=== PATIENT | male | born 1935 | race Caucasian/White ===

== ENCOUNTER 2018-05-13 11:20 | Inpatient (IN) | payer OTHER ==
[~2018-05-13] VITALS: Ht 170.2 cm; Wt 90.9 kg
--- NOTE | 2018-05-13 11:42 | ED GENERAL ADULT ---
History of Present Illness General Chief Complaint: General Adult Stated Complaint: GENERALIZED WEAKNESS, LOW WBC Source: patient, family, old records Exam Limitations: no limitations Vital Signs & Intake/Output Vital Signs & Intake/Output Vital Signs Date Time Temp Pulse Resp B/P B/P Pulse O2 O2 Flow FiO2 Mean Ox Delivery Rate 05/13 2059 59 110/48 05/13 1811 97.7 53 20 144/62 97 Room Air 05/13 1719 98.2 60 20 155/69 98 Room Air 05/13 1648 Room Air 05/13 1538 98.2 62 19 138/66 99 Room Air 05/13 1318 97.6 56 20 135/63 98 Room Air 05/13 1248 Room Air 05/13 1127 97.5 56 18 166/72 99 Room Air Allergies Coded Allergies: No Known Allergies (05/03/17) Triage Note: 83 YEAR OLD MALE BIBA FROM WORK WITH GENERALIZED WEAKNESS. HX PACEMAKER. PATIENT REPORTS SHORTNESS OF BREATH WITH EXERTION. PALLOR NOTED. SKIN IS WARM AND DRY. FINGER STICK BLOOD SUGAR PER EMS WAS 179. PATIENT ALSO REPORT DARK STOOLS X 1 WEEK. PT PRESENTS AWAKE, ALERT, ORIENTED, CALM, AND COOPERATIVE. Triage Nurses Notes Reviewed? yes HPI: 83-year-old man with multiple medical problems and significant cardiovascular history including coronary artery disease status post coronary artery bypass and atrial fibrillation status post permanent pacemaker on Xarelto/aspirin seen for evaluation of fatigue, exertional shortness of breath/chest pain, and black tarry stool. Patient reports over the past 8-9 days he has been experiencing loose black tarry bowel movements without any obvious bright red blood. He takes Xarelto and aspirin for his coronary artery disease and atrial fibrillation. He does not use any NSAIDs. He has been feeling fatigue and weakness during this time and over the past several days developed exertional shortness of breath and chest pain. He saw his psychological operations officer Dr. Ras Cooney this past Monday who reported that his hematocrit level was "27%" and instructed him to stop taking the Xarelto and to follow-up with his gastroenterology appointment when able. Patient developed nausea today while at work for which she was brought to the [facility] ED for evaluation. Presently he feels well at rest but does admit to persistent fatigue. He otherwise denies any headache, fever, chills, blurred/double vision, lightheadedness/dizziness, current chest pain at rest, palpitations, heartburn, shortness breath, cough, vomiting, abdominal pain. (Kevin Alegria MD) Reconcile Medications Albuterol Sulfate (Proair Hfa) 90 MCG HFA.AER.AD 2 PUF INH Q4-6 PRN PRN SOB ( Reported) Amiodarone HCl 200 MG TABLET 1 TAB PO DAILY AFIB (Reported) Amlodipine Besylate 10 MG TABLET 1 TAB PO DAILY BP (Reported) Aspirin (Aspirin*) 81 MG TAB.CHEW 1 TAB PO DAILY HEART (Reported) Atorvastatin Calcium 20 MG TABLET 1 TAB PO DAILY HLD (Reported) Carvedilol 3.125 MG TABLET 1 TAB PO BID AFIB (Reported) Furosemide 40 MG TABLET 1 TAB PO DAILY HF (Reported) Lisinopril 20 MG TABLET 1 TAB PO DAILY BP (Reported) Magnesium Oxide 400 MG TABLET 1 TAB PO DAILY SUPPLEMENT (Reported) Metformin HCl 500 MG TABLET 1 TAB PO BID DIABETES (Reported) Nitroglycerin (Nitrostat) 0.4 MG TAB.SUBL 1 TAB SL AD PRN chest pain ( Reported) 1st sign of attack; may repeat every 5 minutes until relief; if pain persists after 3 tablets in 15 minutes, prompt medical att Rivaroxaban (Xarelto) 20 MG TABLET 1 TAB PO DAILY AFIB (Reported) with food (Dony KIRBY,Abel) Past History Travel History Traveled to [place] past 21 day No Medical History Any Pertinent Medical History? see below for history Cardiovascular: AFIB, hypertension, CAD PACEMAKER Surgical History Surgical History: CABG Psychosocial History What is your primary language Lithuanian Tobacco Use: Never used Family History Hx Contributory? No (Kevin Alegria MD) Review of Systems Review of Systems Constitutional: Reports: see HPI. (Kevin Alegria MD) Physical Exam Physical Exam General Appearance: well developed/nourished, no apparent distress, alert, awake , comfortable Comments: General - well developed, well nourished elderly man in no acute distress HEENT - NCAT, PERRL, EOMI, anicteric sclera Neck- Supple, no JVD/HJR, no bruits, trachea midline, thyroid normal Cardio -3/6 pansystolic murmur at RLSB; regular rate and rhythm, permanent pacemaker in chest wall Resp - Clear to auscultation bilaterally GI - Soft, nontender, nondistended, bowel sounds present Rectal-black/tarry guaiac positive stool without any janee blood Neuro - Awake and alert, CN II - XII grossly intact Extremities - No edema, pulses intact Core Measures ACS in differential dx? No CVA/TIA Diagnosis: No Sepsis Present: No Sepsis Focused Exam Completed? No (Raji KIRBY,Kevin) Progress Differential Diagnoses I considered the following diagnoses in my evaluation of the patient: GI bleed, diverticulitis, diverticular bleed, peptic ulcer disease, duodenal ulcers, acute kidney injury, lactic acidosis, sepsis Plan of Care: Orders Procedure Date/time Status Nothing by Mouth 05/14 B Active CBC WITHOUT DIFFERENTIAL 05/14 0430 Active TROPONIN LEVEL 05/14 0030 Active EKG 05/14 0030 Active Clear Liquid Diet 05/13 D Complete CBC WITHOUT DIFFERENTIAL 05/13 2030 Active Weight 05/13 2007 Active Teach/Educate 05/13 2007 Active Pain Treatment and Response 05/13 2007 Active Nutritional Intake, Monitor 05/13 2007 Active Isolation 05/13 2007 Active Patient Care Conference 05/13 2007 Active TROPONIN LEVEL 05/13 1830 Complete EKG 05/13 1830 Active Pathway - chart 05/13 1741 Active House Staff 05/13 1741 Active Code Status 05/13 1741 Active Add-on Test (ER Only) 05/13 1700 Active LACTIC ACID 05/13 1555 Complete Patient Data 05/13 1523 Active ED Holding Orders 05/13 1521 Active Admit to inpatient 05/13 1521 Active Vital Signs 05/13 1521 Active EKG 05/13 1255 Active TROPONIN LEVEL 05/13 1235 Complete PARTIAL THROMBOPLASTIN TIME 05/13 1143 Complete PROTHROMBIN TIME 05/13 1143 Complete LACTIC ACID 05/13 1143 Complete COMPREHENSIVE METABOLIC PANEL 05/13 1143 Complete CBC WITHOUT DIFFERENTIAL 05/13 1143 Complete TYPE & SCREEN (NOT X-MATCH) 05/13 1143 Complete Intake & Output 05/13 1130 Active VTE Mechanical Prophylaxis 05/13 UNK Active FingerStick- Glucose 05/13 UNK Active Activity/Ambulation 05/13 UNK Active Current Medications Sig/Attila Start time Last Medication Dose Stop Time Status Admin Amlodipine Besylate 10 MG DAILY 05/14 0900 CAN (Norvasc) Atorvastatin Calcium 20 MG DAILY 05/14 09 AC (Lipitor) Insulin Aspart 0 TIDAC 05/14 0800 AC (NovoLOG) Pantoprazole Sodium 40 MG BID 05/13 2100 AC 05/13 (Protonix) 2058 Albuterol Sulfate 2 PUF Q4-6 PRN PRN 05/13 1800 AC (Ventolin) Magnesium Oxide 400 MG DAILY 05/13 1759 AC (Mag-Ox) Amiodarone HCl 200 MG DAILY 05/13 1755 AC 05/13 (Cordarone) 2058 Acetaminophen 650 MG Q6PRN PRN 05/13 1745 AC (Tylenol) Laboratory Tests 05/13/18 1830: Troponin I < 0.01 05/13/18 1610: Lactic Acid 1.9 05/13/18 1235: Anion Gap 9, Estimated GFR 45 L, BUN/Creatinine Ratio 30.0 H, Glucose 135 H, Lactic Acid 2.5 H, Calcium 9.0, Total Bilirubin 0.5, AST 20, ALT 33, Alkaline Phosphatase 58, Troponin I < 0.01, Total Protein 5.6 L, Albumin 3.3 L, Globulin 2.3, Albumin/Globulin Ratio 1.4, PT 12.2, INR 1.12, APTT 25, CBC w Diff NO MAN DIFF REQ, RBC 2.64 L, MCV 94.4 H, MCH 31.4 H, MCHC 33.3, RDW 15.9 H, MPV 9.2, Gran % 78.2 H, Lymphocytes % 12.9 L, Monocytes % 4.8, Eosinophils % 3.5, Basophils % 0.6, Absolute Granulocytes 4.3, Absolute Lymphocytes 0.7 L, Absolute Monocytes 0.3, Absolute Eosinophils 0.2, Absolute Basophils 0 Initial ED EKG: PACED RHYTHM Comments: Elderly man with extensive cardiovascular history including CAD status post CABG and atrial fibrillation on Xarelto status post permanent pacemaker seen for evaluation of black tarry stool 10 days with associated fatigue, exertional shortness of breath/chest pain, now with nausea. Vital signs remain within normal limits. Physical examination demonstrates a pleasant older gentleman with black/tarry stool that is guaiac positive on rectal examination. Labs demonstrate a mildly lower hemoglobin/hematocrit from previous from 9.0/27% - 8.3/24.9%. He remains off of Xarelto as instructed by his psychological operations officer Dr. Cooney. Clinically patient appears to have a gastrointestinal bleed possibly due to his anticoagulant use for his atrial fibrillation. Patient is to be admitted to the telemetry floor for serial troponin, cardiology consultation, gastroenterology consultation, possible endoscopy, possible blood transfusion, and intravenous Protonix. (Kevin Alegria MD) Departure Departure Disposition: STILL A PATIENT Condition: Stable Clinical Impression Primary Impression: GI bleed Referrals: Valeria KIRBY,Linda (PCP/Family) Departure Forms: Customer Survey General Discharge Information Admission Note Spoke With: Onur Wellington MD Documentation of Exam: Documentation of any treatments & extenuating circumstances including Concerns Regarding Discharge (functional status, medication knowledge or non-compliance, living conditions, etc.) that warrant an admission rather than observation: * Serial troponin/EKG * Serial CBC * Vital signs monitoring * Cardiology consultation * Gastroenterology consultation * Intravenous fluids/Protonix * Possible endoscopic evaluation/intervention (Kevin Alegria MD) PA/ARTISTS' MODEL Co-Sign Statement Statement: ED Attending supervision documentation- x I saw and evaluated the patient. I have also reviewed all the pertinent lab results and diagnostic results. I agree with the findings and the plan of care as documented in the PA's/ARTISTS' MODEL's documentation. [] I have reviewed the ED Record and agree with the PA's/ARTISTS' MODEL's documentation. [] Additions or exceptions (if any) to the PAs/ARTISTS' MODEL's note and plan are summarized below: [] (Dony KIRBY,Abel) Critical Care Note Critical Care Note Critical Care Time: 30-74 min (Kevin Alegria MD)
[2018-05-13 12:52] LABS: ABSOLUTE BASOPHIL COUNT 0 /CUMM (0.0-0.2); ABSOLUTE EOSINOPHIL COUNT 0.2 /CUMM (0.0-0.7); ABSOLUTE GRANULOCYTE CT 4.3 /CUMM (1.4-6.5); ABSOLUTE LYMPH COUNT 0.7 /CUMM (1.2-3.4); ABSOLUTE MONOCYTE COUNT 0.3 /CUMM (0.10-0.60); BASOPHIL % 0.6 % (0.0-2.0); EOSINOPHIL % 3.5 % (0-5); GRANULOCYTE % 78.2 % (42.2-75.2); HEMATOCRIT 24.9 % (42-52); MEAN CORPUSCULAR HGB 31.4 PG (27.0-31.0); MEAN CORPUSCULAR HGB CONC 33.3 G/DL (33.0-37.0); MEAN CORPUSCULAR VOLUME 94.4 FL (80.0-94.0); MEAN PLATELET VOLUME 9.2 FL (7.4-10.4); PLATELET COUNT 207 /CUMM (130-400); RBC DISTRIBUTION WIDTH 15.9 % (11.5-14.5); RED BLOOD CELL CT 2.64 /CUMM (4.70-6.10); WHITE BLOOD CELL COUNT 5.5 /CUMM (4.8-10.8)
[2018-05-13 13:01] LABS: PT 12.2 SEC (9.4-12.5); PTT 25 SEC (25-37)
--- NOTE | 2018-05-13 15:39 | History & Physical ---
Blade Weeks 05/13/18 1538: General Information and HPI MD Statement: I have seen and personally examined [facility] and documented this H&P. The patient is a 83 year old M who presented with a patient stated chief complaint of GENERALIZED WEAKNESS AND EXERTIONAL SHORTNESS OF BREATH. Source of Information: patient History of Present Illness: 83-year-old male with extensive cardiovascular history including CAD status post CABG and atrial fibrillation on Xarelto status post permanent pacemaker presents to the emergency department with fatigue, exertional shortness of breath, chest pain, nausea in the setting of 10 days of black tarry stool. Patient reports that over the past 8-9 days he has been experiencing loose black tarry stool without any obvious bright red blood. He is chronically on Xarelto and aspirin for coronary artery disease and atrial fibrillation. He has been feeling fatigued and weakness during this time and over the past several days developed exertional shortness of breath and chest pain. He saw his investment professional Dr. Cooney 2 days ago who instructed him to stop taking Xarelto and follow-up with gastroenterology. Patient developed nausea and was brought to the [place] ED for evaluation by ambulance. Denies any pain. Denies fever/chills/night sweats/chest pain/abdominal pain/urinary symptoms. Patient is being admitted to telemetry for serial monitoring of troponins, EKGs, and CBC, as well as cardiac consultation. Allergies/Medications Allergies: Coded Allergies: No Known Allergies (05/03/17) Compliance With Home Meds: GOOD Past History Travel History Traveled to [place] past 21 day No Medical History Cardiovascular: AFIB, CHF, hypertension, CAD PACEMAKER Surgical History Surgical History: CABG Past Family/Social History Family History Relations & Conditions if any MOTHER FH: atrial fibrillation Functional Ability ADLs Independent: dressing, eating, toileting, bathing. Ambulation: independent IADLs Independent: shopping, housework, finances, food prep, telephone, transportation , medication admin. Review of Systems Review of Systems Constitutional: Reports: malaise, weakness. Denies: chills, fever, unexplained weight loss. Cardiovascular: Reports: chest pain. Denies: orthopena, palpitations, syncope. Respiratory: Reports: short of breath. Denies: cough, hemoptysis, sputum production, stridor , wheezing. GI: Reports: melena, changes in stool. Denies: abdominal pain, constipation, diarrhea, bloody stool, vomiting. Genitourinary: Reports: no symptoms. Musculoskeletal: Reports: no symptoms. Skin: Reports: no symptoms. Neurological/Psychological: Reports: no symptoms. Exam & Diagnostic Data Last 24 Hrs of Vital Signs/I&O Vital Signs Date Time Temp Pulse Resp B/P B/P Pulse O2 O2 Flow FiO2 Mean Ox Delivery Rate 05/13 1538 98.2 62 19 138/66 99 Room Air 05/13 1318 97.6 56 20 135/63 98 Room Air 05/13 1248 Room Air 05/13 1127 97.5 56 18 166/72 99 Room Air Intake & Output 05/13 1600 05/13 0800 05/13 0000 Intake Total 0 Output Total 0 Balance 0 Intake, Oral 0 Output, Urine 0 Patient 187 lb Weight Physical Exam General Appearance Alert, Oriented X3, Cooperative, No Acute Distress Skin No Rashes, No Breakdown, No Significant Lesion Skin Temp/Moisture Exam: Warm/Dry HEENT Atraumatic, PERRLA, EOMI, Mucous Membr. moist/pink Neck Supple, No JVD, No thryomegaly Cardiovascular Regular Rate, Normal S1, Normal S2, Gallops, Rubs, 3/6 systolic murmur, likely aortic stenosis Lungs Clear to Auscultation, Normal Air Movement Abdomen Soft, No Tenderness, No Hepatospenomegaly, No Masses Neurological Normal Speech, Strength at 5/5 X4 Ext, Normal Tone, Sensation Intact Last 24 Hrs of Labs/Alfa: Laboratory Tests 05/13/18 1610: Lactic Acid 1.9 05/13/18 1235: Anion Gap 9, Estimated GFR 45 L, BUN/Creatinine Ratio 30.0 H, Glucose 135 H, Lactic Acid 2.5 H, Calcium 9.0, Total Bilirubin 0.5, AST 20, ALT 33, Alkaline Phosphatase 58, Troponin I Pending, Total Protein 5.6 L, Albumin 3.3 L, Globulin 2.3, Albumin/Globulin Ratio 1.4, PT 12.2, INR 1.12, APTT 25, CBC w Diff NO MAN DIFF REQ, RBC 2.64 L, MCV 94.4 H, MCH 31.4 H, MCHC 33.3, RDW 15.9 H, MPV 9.2, Gran % 78.2 H, Lymphocytes % 12.9 L, Monocytes % 4.8, Eosinophils % 3.5, Basophils % 0.6, Absolute Granulocytes 4.3, Absolute Lymphocytes 0.7 L, Absolute Monocytes 0.3, Absolute Eosinophils 0.2, Absolute Basophils 0 Diagnostic Data EKG Results Paced rhythm Assessment/Plan Assessment: 83-year-old male with extensive cardiovascular history including CAD status post CABG and atrial fibrillation on Xarelto status post permanent pacemaker presents to the emergency department with fatigue, exertional shortness of breath, chest pain, nausea in the setting of 10 days of black tarry stool. Problem list/plan: GI bleed -admit to telemetry to monitor symptomatic anemia -I's and O's per protocol, vitals q shift -Serial troponins and EKG to rule out cardiac etiology -stool was guaiac positive -start patient on full liquid diet, npo at midnight -GI consult for recs -cardiology consult w/ Dr. Cooney, primary investment professional Chronic conditions (afib, chf, cad) -patient has stopped furosemide, xarelto, and aspirin at request of investment professional DVT prophylaxis: ALPS only; patient is actively GI bleeding Full liquid diet with no reds; NPO at midnight Patient is full code As Ranked By This Provider Problem List: 1. GI bleed 2. Atrial fibrillation 3. CAD (coronary artery disease) 4. CHF (congestive heart failure) Core Measures/Misc (05/07) Acute Coronary Syndrome ACS Diagnosis: No Congestive Heart Failure Congestive Heart Failure Diagnosis No Cerebrovascular Accident CVA/TIA Diagnosis: No VTE (View Protocol) VTE Risk Factors Age>40 No Mechanical VTE Prophylaxis d/t N/A MechProphylax Ordered No VTE Pharm Prophylaxis d/t Bleeding (Active) Sepsis (View protocol) Sepsis Present: No If YES complete Sepsis Event Note If YES complete Sepsis Event Note Jake KIRBY,Denise 05/13/18 1606: General Information and HPI Allergies/Medications Home Med list Albuterol Sulfate (Proair Hfa) 90 MCG HFA.AER.AD 2 PUF INH Q4-6 PRN PRN SOB ( Reported) Amiodarone HCl 200 MG TABLET 1 TAB PO DAILY AFIB (Reported) Amlodipine Besylate 10 MG TABLET 1 TAB PO DAILY BP (Reported) Aspirin (Aspirin*) 81 MG TAB.CHEW 1 TAB PO DAILY HEART (Reported) Atorvastatin Calcium 20 MG TABLET 1 TAB PO DAILY HLD (Reported) Carvedilol 3.125 MG TABLET 1 TAB PO BID AFIB (Reported) Furosemide 40 MG TABLET 1 TAB PO DAILY HF (Reported) Lisinopril 20 MG TABLET 1 TAB PO DAILY BP (Reported) Magnesium Oxide 400 MG TABLET 1 TAB PO DAILY SUPPLEMENT (Reported) Metformin HCl 500 MG TABLET 1 TAB PO BID DIABETES (Reported) Nitroglycerin (Nitrostat) 0.4 MG TAB.SUBL 1 TAB SL AD PRN chest pain ( Reported) 1st sign of attack; may repeat every 5 minutes until relief; if pain persists after 3 tablets in 15 minutes, prompt medical att Rivaroxaban (Xarelto) 20 MG TABLET 1 TAB PO DAILY AFIB (Reported) with food Core Measures/Misc (05/07) Sepsis (View protocol) If YES complete Sepsis Event Note If YES complete Sepsis Event Note Resident Review Statement Resident Statement: examined this patient, discussed with production intern Other Findings: Mr. Mcmanus is an 83-year-old gentleman with past medical history significant for hypertension, diabetes, CAD status post bypass (2000), A. fib status post pacemaker placement(April 2017) on Xarelto and CHF(?? systolic versus diastolic) presents with black tarry stools starting a week to 10 days ago. Per the patient, he was in his usual state of health until 10 days ago when he started noticing dark colored stools. Denies any janee blood or any previous episodes. He had FOBT done at home( precribed by PCP) which was positive. Also complains of shortness of breath especially with exertion, fatigue and also chest pain mostly with exertion and at nighttime which is 2/10 intensity, lasts for 2-3 minutes and is usually at the pacemaker site with sometimes radiation to the back. Pain usually goes away when he sits and has been more frequent for the past 1 week. He saw his regular investment professional Dr. Stallworth on Monday and had a CABG done at that time because of black stools, with the H&H coming back 9.3/ 27.0. He was told to stop his Lasix, Xarelto and aspirin at that time. Patient states he was feeling lightheaded and nauseous at work this morning, and decided to come to the ER. Patient has never had a colonoscopy/EGD done in the past and has never seen a GI doctor. Vitals on admission were temperature 97.5, heart rate 56, respiratory rate 18, blood pressure 166/72, and O2 sats 99% on room air. Labs were significant for H&H of 8.3/24.9, BUN 45, creatinine 1.5, lactic acid 2.5 with normal coagulation profile. Problem list; 1. Symptomatic Anemia in the setting of active GI bleed while on Xarelto and Aspirin. While admit him to telemetry floor given extensive cardiac hx CAD s/p Bypass, Afib and CHF for closer monitoring and now presenting with chest pain and SOB. 2. LActic Acidosis; Likely type A from GI bleed from decreased tissue oxygenation. 3. CKD stage 3. 4. Hx of HTN and DM - Admit the patient to telemetry floor - CBC every 6 hours to monitor H&H - IV Protonix 40 mg twice daily - GI consult -Keep the patient on clear liquids tonight and n.p.o. after midnight for likely endoscopy in the morning - Repeat Lactic acid level. -Troponin EKG 3 to rule out ACS -Continue to hold Xarelto, aspirin and furosemide -Cardiology consult -Hold Metformin and start the patient on ISS. -Will also hold Lisinopril given mild elevation in Cr and GI bleed, continue amlodipine and carvedilol. Continue Atorvastatin and Amiodarone. -Repeat Echo if okay if Cardio. -Patient will receive 1 L of normal saline in the ER, will hold off on further fluids for now. DVT Prophylaxis; ALPS only Patient is full code. Amish KIRBY,Onur 05/13/18 1704: Core Measures/Misc (05/07) Sepsis (View protocol) If YES complete Sepsis Event Note If YES complete Sepsis Event Note Attending MD Review Statement Attending Statement Attending MD Statement: examined this patient, discuss w/resident/PA/SAFETY TEACHER, agreed w/resident/PA/SAFETY TEACHER, discussed with family, reviewed EMR data (avail), discussed with nursing, amended to note Attending Assessment/Plan: Patient is an 83-year-old male with history of coronary disease and atrial fibrillation on anticoagulation who presents with exertional shortness of breath and chest pain. Gives a report of black starry stools and hemoglobin levels have noted to have trended downwards compared to labs done recently. He is asymptomatic at rest and hemodynamically stable. Will admit for monitoring of his hemoglobin level of further ischemic workup in light of his complaint of chest pain. Incidentally patient has a positive colo-guard test from last month and is scheduled next month to undergo elective colonoscopy. He has never had one in the past. Problems: 1. Chest pain 2. Acute on chronic anemia 3. Coronary artery disease 4. Chronic kidney disease stage III. Recommendations: Admit to inpatient medical service. Telemetry monitoring. Serial troponins. Cardiology consultation. Monitor H&H every 8 hours. Transfuse to keep hemoglobin greater than 8. Clear liquid diet tonight. N.p.o. past midnight. GI consultation in the morning.
[2018-05-13] MEDS ORDERED: PROAIR HFA8.5 GM INH (16:34)
[2018-05-13] MEDS ORDERED: FUROSEMIDE40 M1 PO (16:34)
[2018-05-13] MEDS ORDERED: XARELTO20 M2 PO (16:34)
--- NOTE | 2018-05-13 17:22 | Cons- Cardiology ---
General Information and HPI Consulting Request Date of Consult: 05/13/18 Requested By: Onur Wellington MD Reason for Consult: CAD, atrial fibrillation History of Present Illness: The patient is an 83-year-old male with history of CAD, status post CABG, atrial fibrillation, and permanent pacemaker. He presents with complaint of melena with anemia. He notes fatigue and shortness of breath over the past few weeks. He also notes recent exertional shortness of breath and chest discomfort. Xarelto was discontinued on Monday. Allergies/Medications Allergies: Coded Allergies: No Known Allergies (05/03/17) Home Med List: Albuterol Sulfate (Proair Hfa) 90 MCG HFA.AER.AD 2 PUF INH Q4-6 PRN PRN SOB ( Reported) Amiodarone HCl 200 MG TABLET 1 TAB PO DAILY AFIB (Reported) Amlodipine Besylate 10 MG TABLET 1 TAB PO DAILY BP (Reported) Aspirin (Aspirin*) 81 MG TAB.CHEW 1 TAB PO DAILY HEART (Reported) Atorvastatin Calcium 20 MG TABLET 1 TAB PO DAILY HLD (Reported) Carvedilol 3.125 MG TABLET 1 TAB PO BID AFIB (Reported) Furosemide 40 MG TABLET 1 TAB PO DAILY HF (Reported) Lisinopril 20 MG TABLET 1 TAB PO DAILY BP (Reported) Magnesium Oxide 400 MG TABLET 1 TAB PO DAILY SUPPLEMENT (Reported) Metformin HCl 500 MG TABLET 1 TAB PO BID DIABETES (Reported) Nitroglycerin (Nitrostat) 0.4 MG TAB.SUBL 1 TAB SL AD PRN chest pain ( Reported) 1st sign of attack; may repeat every 5 minutes until relief; if pain persists after 3 tablets in 15 minutes, prompt medical att Rivaroxaban (Xarelto) 20 MG TABLET 1 TAB PO DAILY AFIB (Reported) with food Past History Travel History Traveled to [place] past 21 day No Medical History Cardiovascular: AFIB, hypertension, CAD PACEMAKER Surgical History Surgical History: CABG Family History Relations & Conditions If Any: MOTHER FH: atrial fibrillation Exam & Diagnostic Data Vital Signs and I&O Vital Signs Date Time Temp Pulse Resp B/P B/P Pulse O2 O2 Flow FiO2 Mean Ox Delivery Rate 05/14 0823 120/56 05/14 0641 98.2 58 18 120/56 94 Room Air 05/14 0316 152/64 05/13 2243 97.8 61 20 146/64 95 Room Air 09/23 2059 59 110/48 05/13 1811 97.7 53 20 144/62 97 Room Air 05/13 1719 98.2 60 20 155/69 98 Room Air 05/13 1648 Room Air 05/13 1538 98.2 62 19 138/66 99 Room Air 05/13 1318 97.6 56 20 135/63 98 Room Air 05/13 1248 Room Air 05/13 1127 97.5 56 18 166/72 99 Room Air Intake & Output 05/14 1600 05/14 0805/14 0000 05/13 1600 05/13 0000 Intake Total 400 0 Output Total 0 Balance 400 0 Intake, Oral 400 0 Number 0 Bowel Movements Output, Urine 0 Patient 198 lb 187 lb Weight Weight Bed scale Measurement Method Diagnostic Data EKG Results EKG tracings independently reviewed, and reveals ventricular paced rhythm at a rate of 55 with left bundle branch Assessment/Plan Assessment/Plan Assessment: 1. CAD, status post CABG 2. Permanent pacemaker 3. Atrial fibrillation 4. Acute GI bleed with melena and anemia 5. Chest discomfort with exertion, likely stable angina precipitated by anemia. Troponin negative 3 Plan: * Xarelto and aspirin on hold for GI bleed * Continue to monitor on telemetry * Endoscopy scheduled for today for evaluation of source of GI bleed * Continue other cardiac medication Consult Acknowledgment - Thank you for your consult request.
[2018-05-13] MEDS ORDERED: CARVEDILOL3.125 M1 PO (17:49)
[2018-05-13] MEDS ORDERED: ASPIRIN81 M4 PO (17:50)
[2018-05-13] MEDS ORDERED: AMIODARONE HCL200 M2 PO (17:50)
[2018-05-13] MEDS ORDERED: MAGNESIUM OXID400 M1 PO (17:52)
[2018-05-13] MEDS ORDERED: METFORMIN HCL500 M3 PO (17:53)
[2018-05-13] MEDS ORDERED: AMLODIPINE BESY10 M1 PO (17:55)
[2018-05-13] MEDS ORDERED: LISINOPRIL20 M1 PO (17:59)
[2018-05-13] MEDS ORDERED: NITROSTAT0.4 M1 SL (18:05)
[2018-05-13] MEDS ORDERED: ATORVASTATIN CA20 M1 PO (18:06)
[2018-05-13 18:11] VITALS: BP 144/62
[2018-05-13 22:42] LABS: ABSOLUTE BASOPHIL COUNT 0.1 /CUMM (0.0-0.2); ABSOLUTE EOSINOPHIL COUNT 0.2 /CUMM (0.0-0.7); ABSOLUTE GRANULOCYTE CT 4.5 /CUMM (1.4-6.5); ABSOLUTE LYMPH COUNT 1.1 /CUMM (1.2-3.4); ABSOLUTE MONOCYTE COUNT 0.4 /CUMM (0.10-0.60); BASOPHIL % 0.9 % (0.0-2.0); EOSINOPHIL % 3.4 % (0-5); GRANULOCYTE % 71.5 % (42.2-75.2); HEMATOCRIT 22.7 % (42-52); MEAN CORPUSCULAR HGB 31.4 PG (27.0-31.0); MEAN CORPUSCULAR HGB CONC 33.5 G/DL (33.0-37.0); MEAN CORPUSCULAR VOLUME 93.9 FL (80.0-94.0); MEAN PLATELET VOLUME 10.1 FL (7.4-10.4); PLATELET COUNT 192 /CUMM (130-400); RED BLOOD CELL CT 2.42 /CUMM (4.70-6.10); WHITE BLOOD CELL COUNT 6.2 /CUMM (4.8-10.8)
[2018-05-13 22:43] VITALS: BP 146/64
[2018-05-14 03:16] VITALS: BP 152/64
[2018-05-14 06:41] VITALS: BP 120/56
--- NOTE | 2018-05-14 07:11 | Cons- Gastroenterology ---
General Information and HPI Consulting Request Date of Consult: 05/14/18 Requested By: Amish KIRBY,Onur Reason for Consult: Melena, anemia. Source of Information: patient, old records Exam Limitations: no limitations History of Present Illness: Mr. Garcia is an 83 year old male with a PMH of afib on xarelto s/p pacemaker, CAD s/p CABG, CHF, HTN, and DM who presented to yesterday with complaints of worsening SOB/SOW, and CP along with reports of black stool for the preceding week and a half. He notes that for the past week and a half his stools have been black, but he has not been able to comment on whether they have been tarry and sticky. He has been having about 1-2 black stools a day and he hasn't had any BMs over the past 24-36 hrs. He is without any hematochezia and he denies any abdominal pain with eating, heartburn, dysphagia or vomiting. He does take asa, but he doesn't take other otc nsaids. He has been having worsening dyspnea on exertion and he has also been having chest discomfort with extertion which improves with rest. He denies having black stool like this previously. He contacted his project director about the black stool last week and he was instructed to stop the xarelto which he did last Monday. He ultimately came to the ER yesterday for progressive weakness/SOW and nausea without vomiting and was admitted to telemetry and his troponins so far have been negative. He was noted to have black stool on rectal exam without blood in the ER, but he hasn't had any bowel movements since he has been admitted and he has remained hemodynamically stable. His hgb has trended downward to 7.6 from 8.3 when he was admnitted and 9.3 when it was last checked 3 days back. He has never had an endoscopy or colonoscopy before and he has recently been noted by his PCP to have a postive cologuard for which he was referred to GI, but has not yet had his appointment. Allergies/Medications Allergies: Coded Allergies: No Known Allergies (05/03/17) Home Med List: Albuterol Sulfate (Proair Hfa) 90 MCG HFA.AER.AD 2 PUF INH Q4-6 PRN PRN SOB ( Reported) Amiodarone HCl 200 MG TABLET 1 TAB PO DAILY AFIB (Reported) Amlodipine Besylate 10 MG TABLET 1 TAB PO DAILY BP (Reported) Aspirin (Aspirin*) 81 MG TAB.CHEW 1 TAB PO DAILY HEART (Reported) Atorvastatin Calcium 20 MG TABLET 1 TAB PO DAILY HLD (Reported) Carvedilol 3.125 MG TABLET 1 TAB PO BID AFIB (Reported) Ferrous Sulfate (IRON) 325 MG (65 MG IRON) TABLET 1 TAB PO DAILY ANEMIA Furosemide 40 MG TABLET 1 TAB PO DAILY HF (Reported) Lisinopril 40 MG TABLET 1 TAB PO DAILY BP (Reported) Magnesium Oxide 400 MG TABLET 1 TAB PO DAILY SUPPLEMENT (Reported) Metformin HCl 500 MG TABLET 1 TAB PO BID DIABETES (Reported) Nitroglycerin (Nitrostat) 0.4 MG TAB.SUBL 1 TAB SL AD PRN chest pain ( Reported) 1st sign of attack; may repeat every 5 minutes until relief; if pain persists after 3 tablets in 15 minutes, prompt medical att Omeprazole 40 MG CAPSULE.DR 1 CAP PO DAILY gastritis Rivaroxaban (Xarelto) 20 MG TABLET 1 TAB PO DAILY AFIB (Reported) with food Current Medications: Current Medications Sig/Attila Start time Last Medication Dose Route Stop Time Status Admin Acetaminophen 650 MG Q6PRN PRN 05/13 1745 AC PO Albuterol Sulfate 2 PUF Q4-6 PRN PRN 05/13 1800 AC INH Amiodarone HCl 200 MG DAILY 05/13 1755 AC 05/13 PO 9 Amlodipine Besylate 10 MG DAILY 05/14 0900 CAN PO Atorvastatin Calcium 20 MG DAILY 05/14 0900 AC PO Insulin Aspart 0 TIDAC 05/14 0800 CAN SC Insulin Human Regular 0 Q6 05/14 0220 AC 05/14 SC 0632 Magnesium Oxide 400 MG DAILY 05/13 1759 AC PO Pantoprazole Sodium 40 MG BID 05/13 2100 AC 05/13 IV 2058 Pantoprazole Sodium 40 MG ONCE ONE 05/13 1500 DC 05/13 IV 05/13 1501 1457 Pantoprazole Sodium 0 .STK-MED ONE 05/13 1454 DC IV Sodium Chloride 1,000 ML BOLUS ONE 05/13 1345 DC 05/13 IV 05/13 1444 1405 Past History Travel History Traveled to [place] past 21 day No Medical History Blood Transfusion Hx: No Neurological: NONE EENT: hearing loss Cardiovascular: AFIB, CHF, hypertension, CAD PACEMAKER Respiratory: NONE Gastrointestinal: NONE Hepatic: NONE Renal: NONE Musculoskeletal: NONE Psychiatric: NONE Endocrine: diabetes Blood Disorders: NONE Cancer(s): NONE ASSEMBLER CAMPER/Reproductive: NONE Surgical History Surgical History: CABG Family History Relations & Conditions If Any: MOTHER FH: atrial fibrillation Psychosocial History Where Do You Live? Home Services at Home: None Smoking Status: Never Smoked Functional Ability ADLs Independent: dressing, eating, toileting, bathing. Ambulation: independent IADLs Independent: shopping, housework, finances, food prep, telephone, transportation , medication admin. Review of Systems Review of Systems Constitutional: Reports: malaise, weakness. Denies: chills, diaphoresis, fever. EENTM: Reports: hearing changes. Denies: visual changes, eye pain, icterus. Cardiovascular: Reports: chest pain, orthopena. Denies: peripheral edema, syncope. Respiratory: Reports: orthopnea, short of breath. Denies: cough, sputum production, stridor, wheezing. GI: Reports: see HPI, melena, changes in stool. Denies: bloody stool, vomiting. Genitourinary: Reports: nocturia. Denies: discharge, dysuria. Musculoskeletal: Denies: no symptoms. Skin: Denies: no symptoms. Neurological/Psychological: Denies: no symptoms. Hematologic/Endocrine: Reports: bleeding. Denies: bruising. Immunologic/Allergic: Denies: no symptoms. All Other Systems: Reviewed and Negative Exam & Diagnostic Data Vital Signs and I&O Vital Signs Date Time Temp Pulse Resp B/P B/P Pulse O2 O2 Flow FiO2 Mean Ox Delivery Rate 05/14 0641 98.2 58 18 120/56 94 Room Air 05/14 0316 152/64 05/13 2243 97.8 61 20 146/64 95 Room Air 05/13 2059 59 110/48 05/13 1811 97.7 53 20 144/62 97 Room Air 05/13 1719 98.2 60 20 155/69 98 Room Air 05/13 1648 Room Air 05/13 1538 98.2 62 19 138/66 99 Room Air 05/13 1318 97.6 56 20 135/63 98 Room Air 05/13 1248 Room Air 05/13 1127 97.5 56 18 166/72 99 Room Air Intake & Output 05/14 1600 05/14 0400 Intake Total 400 0 Output Total 0 Balance 400 0 Intake, Oral 400 0 Number 0 Bowel Movements Output, Urine 0 Patient 198 lb 187 lb Weight Weight Bed scale Measurement Method Physical Exam General Appearance: well developed/nourished, no apparent distress, alert, awake , comfortable, obese Head: atraumatic, normal appearance Eyes: Bilateral: normal appearance. Ears, Nose, Throat: normal pharynx, hearing grossly normal Neck: normal inspection, supple, full range of motion Respiratory: normal breath sounds, chest non-tender, no respiratory distress, quiet respiration Cardiovascular: regular rate/rhythm Gastrointestinal: normal bowel sounds, soft, non-tender, no organomegaly Rectal: black stool, per ED, black stool without blood; guaiac positive Back: normal inspection Extremities: normal inspection, no edema Neurologic/Psych: no motor/sensory deficits, awake, alert, oriented x 3 Skin: intact, normal color, warm/dry Results Pertinent Lab Results: Laboratory Tests 05/14 05/14 05/13 0645 0055 2110 Chemistry Troponin I (<0.11 ng/ml) < 0.01 Hematology CBC w Diff Pending NO MAN DIFF REQ WBC (4.8 - 10.8 /CUMM) Pending 6.2 RBC (4.70 - 6.10 /CUMM) Pending 2.42 L Hgb (14.0 - 18.0 G/DL) Pending 7.6 L Hct (42 - 52 %) Pending 22.7 L MCV (80.0 - 94.0 FL) Pending 93.9 MCH (27.0 - 31.0 PG) Pending 31.4 H MCHC (33.0 - 37.0 G/DL) Pending 33.5 RDW (11.5 - 14.5 %) Pending 16.0 H Plt Count (130 - 400 /CUMM) Pending 192 MPV (7.4 - 10.4 FL) Pending 10.1 Gran % (42.2 - 75.2 %) 71.5 Lymphocytes % (20.5 - 51.1 %) 18.0 L Monocytes % (1.7 - 9.3 %) 6.2 Eosinophils % (0 - 5 %) 3.4 Basophils % (0.0 - 2.0 %) 0.9 Absolute Granulocytes (1.4 - 6.5 /CUMM) 4.5 Absolute Lymphocytes (1.2 - 3.4 /CUMM) 1.1 L Absolute Monocytes (0.10 - 0.60 /CUMM) 0.4 Absolute Eosinophils (0.0 - 0.7 /CUMM) 0.2 Absolute Basophils (0.0 - 0.2 /CUMM) 0.1 05/13 05/13 05/13 1830 1610 1235 Chemistry Sodium (137 - 145 mmol/L) 137 Potassium (3.5 - 5.1 mmol/L) 5.0 Chloride (98 - 107 mmol/L) 106 Carbon Dioxide (22 - 30 mmol/L) 22 Anion Gap (5 - 16) 9 BUN (9 - 20 mg/dL) 45 H Creatinine (0.7 - 1.2 mg/dL) 1.5 H Estimated GFR (>60 ml/min) 45 L BUN/Creatinine Ratio (7 - 25 %) 30.0 H Glucose (65 - 99 mg/dL) 135 H Lactic Acid (0.7 - 2.1 mmol/L) 1.9 2.5 H Calcium (8.4 - 10.2 mg/dL) 9.0 Total Bilirubin (0.2 - 1.3 mg/dL) 0.5 AST (17 - 59 U/L) 20 ALT (21 - 72 U/L) 33 Alkaline Phosphatase (< 127 U/L) 58 Troponin I (<0.11 ng/ml) < 0.01 < 0.01 Total Protein (6.3 - 8.2 g/dL) 5.6 L Albumin (3.5 - 5.0 g/dL) 3.3 L Globulin (1.9 - 4.2 gm/dL) 2.3 Albumin/Globulin Ratio (1.1 - 2.2 %) 1.4 Coagulation PT (9.4 - 12.5 SEC) 12.2 INR (0.90 - 1.17) 1.12 APTT (25 - 37 SEC) 25 Hematology CBC w Diff NO MAN DIFF REQ WBC (4.8 - 10.8 /CUMM) 5.5 RBC (4.70 - 6.10 /CUMM) 2.64 L Hgb (14.0 - 18.0 G/DL) 8.3 L Hct (42 - 52 %) 24.9 L MCV (80.0 - 94.0 FL) 94.4 H MCH (27.0 - 31.0 PG) 31.4 H MCHC (33.0 - 37.0 G/DL) 33.3 RDW (11.5 - 14.5 %) 15.9 H Plt Count (130 - 400 /CUMM) 207 MPV (7.4 - 10.4 FL) 9.2 Gran % (42.2 - 75.2 %) 78.2 H Lymphocytes % (20.5 - 51.1 %) 12.9 L Monocytes % (1.7 - 9.3 %) 4.8 Eosinophils % (0 - 5 %) 3.5 Basophils % (0.0 - 2.0 %) 0.6 Absolute Granulocytes (1.4 - 6.5 /CUMM) 4.3 Absolute Lymphocytes (1.2 - 3.4 /CUMM) 0.7 L Absolute Monocytes (0.10 - 0.60 /CUMM) 0.3 Absolute Eosinophils (0.0 - 0.7 /CUMM) 0.2 Absolute Basophils (0.0 - 0.2 /CUMM) 0 Assessment/Plan Assessment/Recommendations: Assessment: Mr. Garcia is an 83 year old male with an extensvie cardiac history on xarelto for atrial fibrillation who has been having black stool for the past week and a half with a trending down Hgb concerning for an upper GI bleed. He has been having worsening SOW and chest pain with exertion which is likely related to demand ischemia as his troponins have been negative and those symptoms improve with rest. As he is reporting black stool I suspect the fall in his hgb is related to an upper GI bleed possibly from asymptomatic PUD from the asa he is on, but as he has also recently been noted to have a postive cologuard test done by his PCP and has never had a colonoscopy before it is possible he could have an occult colorectal cancer contributing to his anemia. While I would expect hematochezia from a CRC it is possible a right sided colonic tumor can lead to melena as well. Other potential etiologies of his anemia could be benign causes such as AVMs, or a dieulafoys lesion. He has held his Xarelto for the past 72 hours and continues to have a hgb that is trending downward, but his lack of any BMs over the past 24-36 hours and his hemodynamic stability suggests the bleeding has stopped. I will arrange for a diagnostic EGD today and based on those results consideration will be given for an inpatient colonoscopy. Recommendations: 1. Continue IV protonix 40 mg bid for now. 2. Hold asa and other nsaids for now, but if EGD is negative for significant PUD will likely recommend restarting the asa shortly considering his extensive cardiac history. 3. Continue to hold xarleto for now. 4. Keep NPO and will arrange for a diagnostic/therapeutic EGD to be done later today. 5. Follow CBC and would transfuse as needed to maintain his hgb > 8 or as per cardiology recommendations considering his current symptoms. 6. Serial troponins as per cardiology recommendations. 7. Maintain 2 large bore IVs as all times. 8. Notify GI for signs of overt GI bleeding. I will continue to follow this patient and make further recommendations based on his clinical course, results of repeat blood work and the EGD later today. Problem List: 1. GI bleed 2. Atrial fibrillation 3. CAD (coronary artery disease) Copies To: Valeria KIRBY,Linda; Eros KIRBY,Ras Consult Acknowledgment - Thank you for your consult request.
--- NOTE | 2018-05-14 07:13 | PN- Housestaff ---
Blade Weeks 05/14/18 0712: Subjective Follow-up For: GI bleed Shortness of breath Generalized weakness Complaints: no complaints Subjective: Patient seen and examined at the bedside. Denies any complaints, looking forward to EGD and eating afterwards. Otherwise denies any pain, headache, fever, chills, blurred/double vision, lightheadedness/dizziness, current chest pain at rest, palpitations, heartburn, shortness breath, cough, vomiting, abdominal pain, or urinary symptoms. Review of Systems Constitutional: Reports: no symptoms. Objective Last 24 Hrs of Vital Signs/I&O Vital Signs Date Time Temp Pulse Resp B/P B/P Pulse O2 O2 Flow FiO2 Mean Ox Delivery Rate 05/14 0823 120/56 05/14 0800 95 Room Air Room Air 05/14 0641 98.2 58 18 120/56 94 Room Air 05/14 0316 152/64 05/13 2243 97.8 61 20 146/64 95 Room Air 05/13 2059 59 110/48 05/13 1811 97.7 53 20 144/62 97 Room Air 05/13 1719 98.2 60 20 155/69 98 Room Air 05/13 1648 Room Air 05/13 1538 98.2 62 19 138/66 99 Room Air Intake & Output 05/14 1600 05/14 0800 05/14 0000 Intake Total 400 Output Total Balance 400 Intake, Oral 400 Number 0 Bowel Movements Patient 198 lb Weight Weight Bed scale Measurement Method Physical Exam General Appearance: Alert, Oriented X3, Cooperative, No Acute Distress Skin: No Rashes, No Breakdown, No Significant Lesion Skin Temp/Moisture Exam: Warm/Dry Cardiovascular: Regular Rate, Normal S1, Normal S2, No Murmurs, Gallops, Rubs Lungs: Clear to Auscultation, Normal Air Movement Abdomen: Soft, No Tenderness Neurological: Normal Speech, Strength at 5/5 X4 Ext, Normal Tone, Sensation Intact Extremities: No Clubbing, No Cyanosis, No Edema, Normal Pulses Current Medications: Current Medications Sig/Attila Start time Last Medication Dose Route Stop Time Status Admin Acetaminophen 650 MG Q6PRN PRN 05/13 1745 AC PO Albuterol Sulfate 2 PUF Q4-6 PRN PRN 05/13 1800 AC INH Amiodarone HCl 200 MG DAILY 05/13 1755 AC 05/14 PO 0823 Amlodipine Besylate 10 MG DAILY 05/14 900 CAN PO Atorvastatin Calcium 20 MG DAILY 05/14 09 AC PO Insulin Aspart 0 TIDAC 05/14 08 CAN SC Insulin Human Regular 0 Q6 05/14 0220 AC 05/14 SC 1213 Magnesium Oxide 400 MG DAILY 05/13 1759 AC 05/14 PO 0823 Pantoprazole Sodium 40 MG BID 05/13 2100 AC 05/14 IV 0828 Pantoprazole Sodium 40 MG ONCE ONE 05/13 1500 DC 05/13 IV 05/13 1501 1457 Pantoprazole Sodium 0 .STK-MED ONE 05/13 1454 DC IV Sodium Chloride 1,000 ML BOLUS ONE 05/13 1345 DC 05/13 IV 05/13 1444 1405 Last 24 Hrs of Lab/Alfa Results Last 24 Hrs of Labs/Mics: Laboratory Tests 05/14/18 0645: CBC w Diff NO MAN DIFF REQ, RBC 2.15 L, MCV 94.1 H, MCH 32.3 H, MCHC 34.3, RDW 15.9 H, MPV 9.8, Gran % 69.8, Lymphocytes % 18.8 L, Monocytes % 6.0, Eosinophils % 4.6, Basophils % 0.8, Absolute Granulocytes 3.4, Absolute Lymphocytes 0.9 L, Absolute Monocytes 0.3, Absolute Eosinophils 0.2, Absolute Basophils 0 05/14/18 0055: Troponin I < 0.01 05/13/18 2110: CBC w Diff NO MAN DIFF REQ, RBC 2.42 L, MCV 93.9, MCH 31.4 H, MCHC 33.5, RDW 16.0 H, MPV 10.1, Gran % 71.5, Lymphocytes % 18.0 L, Monocytes % 6.2, Eosinophils % 3.4, Basophils % 0.9, Absolute Granulocytes 4.5, Absolute Lymphocytes 1.1 L, Absolute Monocytes 0.4, Absolute Eosinophils 0.2, Absolute Basophils 0.1 05/13/18 1830: Troponin I < 0.01 05/13/18 1610: Lactic Acid 1.9 Orders Miscellaneous Findings: EGD - mild gastritis, small hiatal hernia, no active bleeding Assessment/Plan Assessment: 83-year-old male with extensive cardiovascular history including CAD status post CABG and atrial fibrillation on Xarelto status post permanent pacemaker presents to the emergency department with fatigue, exertional shortness of breath, chest pain, nausea in the setting of 10 days of black tarry stool. Problem list/plan: GI bleed -admit to telemetry to monitor symptomatic anemia -I's and O's per protocol, vitals q shift -Serial troponins and EKG to rule out cardiac etiology -stool was guaiac positive -transfuse 1 unite PRBC -endoscopy was unrevealing -start patient on full liquid diet after his endoscopy; npo at midnight -diagnostic colonoscopy to be performed tomorrow -cardiology consult w/ Dr. Cooney, primary conductor/engineer Chronic conditions (afib, chf, cad) -patient has stopped furosemide, xarelto, and aspirin at request of conductor/engineer DVT prophylaxis: ALPS only; patient is actively GI bleeding Full liquid diet with no reds Patient is full code Problem List: 1. GI bleed 2. Atrial fibrillation 3. CAD (coronary artery disease) 4. CHF (congestive heart failure) Pain Ratin Pain Location: none Pain Goal: Remain pain free Pain Plan: none Tomorrow's Labs & Rationales: cbc for post-transfusion level Peggy Campbell MD 05/14/18 1032: Attending MD Review Statement Attending Statement Attending MD Statement: examined this patient, discuss w/resident/PA/STITCHER SET UP OPERATOR AUTOMATIC, agreed w/resident/PA/STITCHER SET UP OPERATOR AUTOMATIC, reviewed EMR data (avail), discussed with nursing, discussed with case mgmt, reviewed images Attending Assessment/Plan: 83-year-old male past medical history of diabetes on metformin, coronary artery disease status post bypass and A. fib on Xarelto who is here with a presumed upper GI bleed. He is anemic with dark stool. His anticoagulation is on hold and he is scheduled for an endoscopy today. We will transfusing him 1 unit of blood for the low hemoglobin and will follow after the endoscopy. His Lasix, MADELINE inhibitor and beta-maxine appear to be on hold and will clarify with cardiology.
[2018-05-14 08:11] LABS: ABSOLUTE BASOPHIL COUNT 0 /CUMM (0.0-0.2); ABSOLUTE EOSINOPHIL COUNT 0.2 /CUMM (0.0-0.7); ABSOLUTE GRANULOCYTE CT 3.4 /CUMM (1.4-6.5); ABSOLUTE LYMPH COUNT 0.9 /CUMM (1.2-3.4); ABSOLUTE MONOCYTE COUNT 0.3 /CUMM (0.10-0.60); BASOPHIL % 0.8 % (0.0-2.0); EOSINOPHIL % 4.6 % (0-5); GRANULOCYTE % 69.8 % (42.2-75.2); MEAN CORPUSCULAR HGB 32.3 PG (27.0-31.0); MEAN CORPUSCULAR HGB CONC 34.3 G/DL (33.0-37.0); MEAN CORPUSCULAR VOLUME 94.1 FL (80.0-94.0); MEAN PLATELET VOLUME 9.8 FL (7.4-10.4); PLATELET COUNT 183 /CUMM (130-400); RBC DISTRIBUTION WIDTH 15.9 % (11.5-14.5); RED BLOOD CELL CT 2.15 /CUMM (4.70-6.10); WHITE BLOOD CELL COUNT 4.9 /CUMM (4.8-10.8)
[2018-05-14 09:01] LABS: HEMATOCRIT 20.2 % (42-52)
--- NOTE | 2018-05-14 10:54 | PN- Cardiology ---
Subjective Subjective: Patient notes chest discomfort with ambulation which resolves with rest. No shortness of breath. No diaphoresis. No lightheadedness or dizziness. He has had no further bowel movements since yesterday. Objective Vital Signs and I&Os Vital Signs Date Time Temp Pulse Resp B/P B/P Pulse O2 O2 Flow FiO2 Mean Ox Delivery Rate 05/14 823 120/56 05/14 0641 98.2 58 18 120/56 94 Room Air 05/14 0316 152/64 05/13 2243 97.8 61 20 146/64 95 Room Air 05/13 2059 59 110/48 05/13 1811 97.7 53 20 144/62 97 Room Air 05/13 1719 98.2 60 20 155/69 98 Room Air 05/13 1648 Room Air 05/13 1538 98.2 62 19 138/66 99 Room Air 05/13 1318 97.6 56 20 135/63 98 Room Air 05/13 1248 Room Air 05/13 1127 97.5 56 18 166/72 99 Room Air Intake & Output 05/14 1600 05/14 0000 05/13 1600 05/13 0000 Intake Total 400 0 Output Total 0 Balance 400 0 Intake, Oral 400 0 Number 0 Bowel Movements Output, Urine 0 Patient 198 lb 187 lb Weight Weight Bed scale Measurement Method Physical Exam: Gen: NAD HEENT: normal Lungs: clear to auscultation, normal resp. effort Heart: RRR, S1, S2, no murmurs Abdomen: Soft, nontender, no masses Extremities: No clubbing, cyanosis, or edema. Neuro: Alert and oriented x 3, cranial nerves intact Current Medications: Current Medications Sig/Attila Start time Last Medication Dose Route Stop Time Status Admin Acetaminophen 650 MG Q6PRN PRN 05/13 174 AC PO Albuterol Sulfate 2 PUF Q4-6 PRN PRN 05/13 1800 AC INH Amiodarone HCl 200 MG DAILY 05/13 175 AC 05/14 PO 822 Amlodipine Besylate 10 MG DAILY 05/14 900 CAN PO Atorvastatin Calcium 20 MG DAILY 05/14 900 AC PO Insulin Aspart 0 TIDAC 05/14 08 CAN SC Insulin Human Regular 0 Q6 05/14 0220 AC 05/14 SC 0632 Magnesium Oxide 400 MG DAILY 05/13 1759 AC 05/14 PO 0823 Pantoprazole Sodium 40 MG BID 05/13 2100 AC 05/14 IV 0828 Pantoprazole Sodium 40 MG ONCE ONE 05/13 1500 DC 05/13 IV 05/13 1501 1457 Pantoprazole Sodium 0 .STK-MED ONE 05/13 1454 DC IV Sodium Chloride 1,000 ML BOLUS ONE 05/13 1345 DC 05/13 IV 05/13 1444 1405 Results Last 48 Hrs of Labs/Mics: Laboratory Tests 05/14/18 0645: CBC w Diff NO MAN DIFF REQ, RBC 2.15 L, MCV 94.1 H, MCH 32.3 H, MCHC 34.3, RDW 15.9 H, MPV 9.8, Gran % 69.8, Lymphocytes % 18.8 L, Monocytes % 6.0, Eosinophils % 4.6, Basophils % 0.8, Absolute Granulocytes 3.4, Absolute Lymphocytes 0.9 L, Absolute Monocytes 0.3, Absolute Eosinophils 0.2, Absolute Basophils 0 05/14/18 0055: Troponin I < 0.01 05/13/180: CBC w Diff NO MAN DIFF REQ, RBC 2.42 L, MCV 93.9, MCH 31.4 H, MCHC 33.5, RDW 16.0 H, MPV 10.1, Gran % 71.5, Lymphocytes % 18.0 L, Monocytes % 6.2, Eosinophils % 3.4, Basophils % 0.9, Absolute Granulocytes 4.5, Absolute Lymphocytes 1.1 L, Absolute Monocytes 0.4, Absolute Eosinophils 0.2, Absolute Basophils 0.1 05/13/18 1830: Troponin I < 0.01 05/13/18 1610: Lactic Acid 1.9 05/13/18 1235: Anion Gap 9, Estimated GFR 45 L, BUN/Creatinine Ratio 30.0 H, Glucose 135 H, Lactic Acid 2.5 H, Calcium 9.0, Total Bilirubin 0.5, AST 20, ALT 33, Alkaline Phosphatase 58, Troponin I < 0.01, Total Protein 5.6 L, Albumin 3.3 L, Globulin 2.3, Albumin/Globulin Ratio 1.4, PT 12.2, INR 1.12, APTT 25, CBC w Diff NO MAN DIFF REQ, RBC 2.64 L, MCV 94.4 H, MCH 31.4 H, MCHC 33.3, RDW 15.9 H, MPV 9.2, Gran % 78.2 H, Lymphocytes % 12.9 L, Monocytes % 4.8, Eosinophils % 3.5, Basophils % 0.6, Absolute Granulocytes 4.3, Absolute Lymphocytes 0.7 L, Absolute Monocytes 0.3, Absolute Eosinophils 0.2, Absolute Basophils 0 Assessment/Plan Assessment/Plan Assessment: 1. CAD, status post CABG 2. Permanent pacemaker 3. Atrial fibrillation 4. Acute GI bleed with melena and anemia 5. Chest discomfort with exertion, likely stable angina precipitated by anemia. Troponin negative 3 Plan: * Xarelto and aspirin on hold for GI bleed * Continue to monitor on telemetry * Endoscopy scheduled for today for evaluation of source of GI bleed * Continue other cardiac medication Continue telemetry? Yes
--- NOTE | 2018-05-14 14:23 | Proc Note Endoscopy ---
Endoscopy Procedure [facility] Mental Status: alert/oriented Heart/Lung Eval Prior to Sedation: within normal limits Candidate for Sedation? Yes Procedure Date: 05/14/18 Procedure Type: EGD w/biopsy Insurance Claims Clerk: Morales Stinson MD ASA Classification: IV Indications: Anemia, melena. Instrument: diagnostic gastroscope Meds Received: MAC Patient's Tolerance: good Complications: none Extent Reached: second part of duodenum Procedure: After getting written informed consent the patient was placed in the left lateral decubitus position with pulse oximetry, cardiac monitoring, and supplemental oxygen given. A bite block was inserted and IV sedation was given until the desired effect was achieved. A high definition upper Olympus endoscope was then inserted into the mouth and advanced to the second portion of the duodenum with little difficulty. Retroflexed views and photodocumentation was obtained. Findings: Esophagus: The esophageal mucosa was grossly normal in appearance and there was a normal-appearing Z line at 36 cm from the incisors. There were no esophageal strictures, ulcers, erosions, or varices appreciated. The hiatal narrowing was at approximately 38 cm the incisors accounting for a small 2 cm sliding hiatal hernia. Stomach: There were a few small erosions in the antrum, but there were no ulcers or masses appreciated. Retroflexed views revealed a small hiatal hernia without evident Narinder erosions. Distention and peristalsis of the stomach appeared normal. There was no active bleeding appreciated within the stomach. Random biopsies were obtained from the antrum with cold biopsy forceps and were sent to pathology for further evaluation. Duodenum: The duodenal bulb, sweep, and folds were grossly normal in appearance. There were no duodenal ulcers, erosions, or AVMs appreciated. Impression: 1. Mild erosive gastritis status post biopsies. 2. Small hiatal hernia without Narinder erosions. 3. No active bleeding or source of anemia appreciated to the second portion of the duodenum. Recommendations: 1. Follow CBCs to 12 hours and transfuse as needed to maintain his hemoglobin greater than 8. 2. If medically indicated would restart his baby aspirin, but would continue to hold his Xarelto for now. 3. Would keep on a full liquid diet through today and after a liquid dinner would administer 2 Dulcolax tablets followed by a half a gallon of GoLYTELY and then another half a gallon of GoLYTELY in the a.m. and nothing by mouth after the bowel prep for a diagnostic/therapeutic colonoscopy tomorrow. 4. Would notify GI for any signs of overt hemodynamically significant GI bleeding. 5. He should follow up the pathology results with me as an outpatient. CC: Valeria KIRBY,Linda; Eros KIRBY,Ras
[2018-05-14 22:59] VITALS: BP 118/54
[2018-05-15 02:19] LABS: ABSOLUTE BASOPHIL COUNT 0.1 /CUMM (0.0-0.2); ABSOLUTE EOSINOPHIL COUNT 0.2 /CUMM (0.0-0.7); ABSOLUTE GRANULOCYTE CT 4.6 /CUMM (1.4-6.5); ABSOLUTE LYMPH COUNT 0.9 /CUMM (1.2-3.4); ABSOLUTE MONOCYTE COUNT 0.4 /CUMM (0.10-0.60); BASOPHIL % 0.8 % (0.0-2.0); EOSINOPHIL % 3.5 % (0-5); GRANULOCYTE % 75.1 % (42.2-75.2); HEMATOCRIT 23.7 % (42-52); MEAN CORPUSCULAR HGB 31.6 PG (27.0-31.0); MEAN CORPUSCULAR HGB CONC 34.2 G/DL (33.0-37.0); MEAN CORPUSCULAR VOLUME 92.5 FL (80.0-94.0); MEAN PLATELET VOLUME 9.3 FL (7.4-10.4); PLATELET COUNT 197 /CUMM (130-400); RBC DISTRIBUTION WIDTH 16.1 % (11.5-14.5); RED BLOOD CELL CT 2.57 /CUMM (4.70-6.10); WHITE BLOOD CELL COUNT 6.1 /CUMM (4.8-10.8)
[2018-05-15 05:51] VITALS: BP 142/56
--- NOTE | 2018-05-15 07:00 | PN- Housestaff ---
See Addendum Blaed Weeks 05/15/18 0700: Subjective Follow-up For: GI bleed Shortness of breath Generalized weakness Complaints: no complaints Subjective: Patient seen and examined at the bedside. EGD yesterday was unrevealing, patient scheduled for colonoscopy today. Continues to have black liquid stools. States he has minor chest pain on moving to the bathroom. Otherwise denies any complaints. Otherwise denies any pain, headache, fever, chills, blurred/double vision, lightheadedness/dizziness, current chest pain at rest, palpitations, heartburn, shortness breath, cough, vomiting, abdominal pain, or urinary symptoms. Review of Systems Constitutional: Reports: see HPI. Objective Last 24 Hrs of Vital Signs/I&O Vital Signs Date Time Temp Pulse Resp B/P B/P Pulse O2 O2 Flow FiO2 Mean Ox Delivery Rate 05/15 0942 98.3 56 20 142/56 05/15 0551 98.3 56 20 142/56 97 Room Air 05/14 2259 98.0 55 20 118/54 96 Room Air Intake & Output 05/15 1600 05/15 0800 05/15 0000 Intake Total 950 2850 Output Total Balance 950 2850 Intake, Blood 350 Product Intake, IV 200 Intake, Oral 750 2500 Number 4 Bowel Movements Patient 200 lb Weight Weight Bed scale Measurement Method Physical Exam General Appearance: Alert, Oriented X3, Cooperative, No Acute Distress Skin: No Rashes, No Breakdown, No Significant Lesion, upper extremities bruising Skin Temp/Moisture Exam: Warm/Dry Cardiovascular: Regular Rate, Normal S1, Normal S2, No Murmurs, Gallops, Rubs Lungs: Clear to Auscultation, Normal Air Movement Abdomen: Soft, No Tenderness Neurological: Normal Gait, Normal Speech, Strength at 5/5 X4 Ext, Normal Tone, Sensation Intact Extremities: No Clubbing, No Cyanosis, No Edema Current Medications: Current Medications Sig/Attila Start time Last Medication Dose Route Stop Time Status Admin Acetaminophen 650 MG Q6PRN PRN 05/13 1745 AC PO Albuterol Sulfate 2 PUF Q4-6 PRN PRN 05/13 1800 AC INH Amiodarone HCl 200 MG DAILY 05/13 1755 AC 05/15 PO 0942 Aspirin 81 MG DAILY 05/14 1501 AC PO Atorvastatin Calcium 20 MG DAILY 05/14 0900 AC PO Bisacodyl 10 MG ONCE ONE 05/14 1700 DC PO 05/14 1701 Chlorhexidine 0 .STK-MED ONE 05/14 1528 DC Gluconate TOP Dextrose/Sodium 1,000 ML Q20H 05/15 0200 AC 05/15 Chloride IV 0200 Insulin Human Regular 0 Q6 05/14 0220 AC 05/15 SC 0529 Magnesium Oxide 400 MG DAILY 05/13 1759 AC 05/15 PO 0942 Pantoprazole Sodium 40 MG BID 05/13 2100 AC 05/15 IV 0942 Polyethylene Glycol 0.5 GAL ONCE ONE 05/15 0500 DC 05/15 PO 05/15 0501 0524 Polyethylene Glycol 0.5 GAL ONCE ONE 05/14 1700 DC 05/14 PO 05/14 170 1650 Last 24 Hrs of Lab/Alfa Results Last 24 Hrs of Labs/Mics: Laboratory Tests 05/15/18 0203: CBC w Diff NO MAN DIFF REQ, RBC 2.57 L, MCV 92.5, MCH 31.6 H, MCHC 34.2, RDW 16.1 H, MPV 9.3, Gran % 75.1, Lymphocytes % 14.7 L, Monocytes % 5.9, Eosinophils % 3.5, Basophils % 0.8, Absolute Granulocytes 4.6, Absolute Lymphocytes 0.9 L, Absolute Monocytes 0.4, Absolute Eosinophils 0.2, Absolute Basophils 0.1 Assessment/Plan Assessment: 83-year-old male with extensive cardiovascular history including CAD status post CABG and atrial fibrillation on Xarelto status post permanent pacemaker presents to the emergency department with fatigue, exertional shortness of breath, chest pain, nausea in the setting of 10 days of black tarry stool. Problem list/plan: GI bleed -admit to telemetry to monitor symptomatic anemia -I's and O's per protocol, vitals q shift -Serial troponins and EKG to rule out cardiac etiology -stool was guaiac positive -transfuse 1 unite PRBC -endoscopy was unrevealing; only hiatal hernia w/o Narinder erosions and erosive gastritis -start patient on full liquid diet after his endoscopy; npo at midnight -diagnostic colonoscopy to be performed today -cardiology consult w/ Dr. Cooney, primary security assurance specialist Chronic conditions (afib, chf, cad) -patient has stopped furosemide, xarelto, and aspirin at request of security assurance specialist DVT prophylaxis: ALPS only; patient is actively GI bleeding Full liquid diet with no reds Patient is full code Problem List: 1. GI bleed 2. Atrial fibrillation 3. CAD (coronary artery disease) 4. CHF (congestive heart failure) Pain Ratin Pain Location: none Pain Goal: Remain pain free Pain Plan: none Tomorrow's Labs & Rationales: possible discharge today, no labs ordered Discharge Plan Discharge Disposition: home Anticipated Discharge (Day): today Peggy Campbell MD 05/15/18 0958: Attending MD Review Statement Attending Statement Attending MD Statement: examined this patient, discuss w/resident/PA/PAPER HANGER, agreed w/resident/PA/PAPER HANGER, reviewed EMR data (avail), discussed with nursing, discussed with case mgmt, reviewed images Attending Assessment/Plan: Appreciate GI follow-up. Patient's endoscopy showed erosive gastritis and is due for a colonoscopy today as he is profoundly anemic. All anticoagulation is on hold and will follow up.
--- NOTE | 2018-05-15 08:29 | PN- Student ---
Jae Shultz 05/15/18 0816: Subjective Subjective: This is an 83-year-old male with past medical history of CAD, status post CABG, atrial fibrillation, and permanent pacemaker presented to the ED 2 days ago with melena and anemia. Today, the patient reports doing better after receiving one liter of blood transfusion. He states that his most recent bowel movement this AM consisted of dark liquid stool. The patient also complained of a transient left-sided chest pain with radiation to the jaw and left shoulder. The pain began after he returned from the bathroom. The pain lasted for approximately 2 minutes. The patient did not endorse any chest pain during the interview. He denied fever, chills, headache, abdominal pain, numbness, tingling, or changes in his urinary patterns. The patient is on liquid diet for PM colonoscopy. Review of Systems Review of Systems Constitutional: Denies: no symptoms. EENTM: Denies: no symptoms. Cardiovascular: Denies: chest pain (transient chest pain ~2 mins a). Respiratory: Denies: no symptoms. GI: Denies: no symptoms. Genitourinary: Denies: see HPI. Musculoskeletal: Denies: no symptoms. Skin: Denies: lesions (Bruises of bilateral arms 2/2 ). Neurological/Psychological: Denies: no symptoms. Hematologic/Endocrine: Denies: bruising. Objective Results Results: Laboratory Tests 05/15/18 0203: CBC w Diff NO MAN DIFF REQ, RBC 2.57 L, MCV 92.5, MCH 31.6 H, MCHC 34.2, RDW 16.1 H, MPV 9.3, Gran % 75.1, Lymphocytes % 14.7 L, Monocytes % 5.9, Eosinophils % 3.5, Basophils % 0.8, Absolute Granulocytes 4.6, Absolute Lymphocytes 0.9 L, Absolute Monocytes 0.4, Absolute Eosinophils 0.2, Absolute Basophils 0.1 05/14/18 0645: CBC w Diff NO MAN DIFF REQ, RBC 2.15 L, MCV 94.1 H, MCH 32.3 H, MCHC 34.3, RDW 15.9 H, MPV 9.8, Gran % 69.8, Lymphocytes % 18.8 L, Monocytes % 6.0, Eosinophils % 4.6, Basophils % 0.8, Absolute Granulocytes 3.4, Absolute Lymphocytes 0.9 L, Absolute Monocytes 0.3, Absolute Eosinophils 0.2, Absolute Basophils 0 05/14/18 0055: Troponin I < 0.01 05/13/180: CBC w Diff NO MAN DIFF REQ, RBC 2.42 L, MCV 93.9, MCH 31.4 H, MCHC 33.5, RDW 16.0 H, MPV 10.1, Gran % 71.5, Lymphocytes % 18.0 L, Monocytes % 6.2, Eosinophils % 3.4, Basophils % 0.9, Absolute Granulocytes 4.5, Absolute Lymphocytes 1.1 L, Absolute Monocytes 0.4, Absolute Eosinophils 0.2, Absolute Basophils 0.1 05/13/18 1830: Troponin I < 0.01 05/13/18 1610: Lactic Acid 1.9 05/13/18 1235: Anion Gap 9, Estimated GFR 45 L, BUN/Creatinine Ratio 30.0 H, Glucose 135 H, Lactic Acid 2.5 H, Calcium 9.0, Total Bilirubin 0.5, AST 20, ALT 33, Alkaline Phosphatase 58, Troponin I < 0.01, Total Protein 5.6 L, Albumin 3.3 L, Globulin 2.3, Albumin/Globulin Ratio 1.4, PT 12.2, INR 1.12, APTT 25, CBC w Diff NO MAN DIFF REQ, RBC 2.64 L, MCV 94.4 H, MCH 31.4 H, MCHC 33.3, RDW 15.9 H, MPV 9.2, Gran % 78.2 H, Lymphocytes % 12.9 L, Monocytes % 4.8, Eosinophils % 3.5, Basophils % 0.6, Absolute Granulocytes 4.3, Absolute Lymphocytes 0.7 L, Absolute Monocytes 0.3, Absolute Eosinophils 0.2, Absolute Basophils 0 PHYSICAL EXAM Last 24hrs of Vital Signs Vital Signs Date Time Temp Pulse Resp B/P B/P Pulse O2 O2 Flow FiO2 Mean Ox Delivery Rate 05/15 0942 98.3 56 20 142/56 05/15 0551 98.3 56 20 142/56 97 Room Air 05/149 98.0 55 20 118/54 96 Room Air Physical Exam General Appearance Alert, Oriented X3, Cooperative, No Acute Distress Skin No Significant Lesion HEENT Atraumatic Neck Supple Cardiovascular Regular Rate, Normal S1, Normal S2 Lungs Clear to Auscultation, Normal Air Movement Abdomen Normal Bowel Sounds, Soft, No Tenderness, No Masses Neurological Normal Speech, Strength at 5/5 X4 Ext Extremities No Clubbing, No Cyanosis, No Edema, Normal Pulses, No Tenderness/ Swelling Vascular Normal Pulses Assessment/Plan Assessment: This is an 83-year-old male with past medical history of CAD, status post CABG, atrial fibrillation, and permanent pacemaker presented to the ED 2 days ago with melena and anemia. The patient is afebrile with stable vitals overnight. Hgb is trending up to 8.1 after 1L of blood transfusion. Dark liquid stool per patient' s report suggests continued lower GI bleed. Physical exam indicated no abnormal findings. The patient is on bowel prep regimen for colonoscopy in the PM. #GI bleed - Endoscopy showed mild erosive gastritis without evidence of bleeding. Pathology results pending and will be discussed outpatient. - Diagnostic/Therapeutic colonoscopy scheduled to rule out lower GI bleed after patient completes 1/2 gallon of GoLYTELY. - Routine CBC. #Chest pain/Afib - Restarted patient on Aspirin 81 mg yesterday. - All anticoags on hold. - Monitor for any new onset of chest pain. Consider an updated EKG. Blade Weeks 05/15/18 1257: Resident Review Statement Resident Statement: examined this patient, reviewed EMR data (avail), discussed and agree with PA student Other Findings: Patient is as described in PA student note. Additionally, plan consists of colonoscopy this PM, and possible discharge after scope.
--- NOTE | 2018-05-15 10:56 | Patient Discharge Instructions ---
Discharge Instructions General Discharge Information Special Instructions: - Please follow up with your primary care physician within 1-2 weeks of discharge. Inform your primary care physician of this admission to [facility]. - Please follow up with your new mosaic tile maker Dr. Stinson for PillCam testing as an outpatient within 1-2 weeks - Continue your current medications per discharge instructions. - Please watch for these problems: Fever, Chills, Nausea, Vomiting, Shortness of Breath, Productive Cough, Chest Pain/Discomfort, Abdominal Pain, Active Bleeding or Bloody urine/stool. Acute Coronary Syndrome Inclusion Criteria At DC or during hospital stay patient has or had the following: ACS DIAGNOSIS No Discharge Core Measures Meds if any: Prescribed or Continued at Discharge Meds if any: NOT Prescribed or Continued at Discharge Congestive Heart Failure Inclusion Criteria At DC or during hospital stay patient has or had the following: CHF DIAGNOSIS No Discharge Core Measures Meds if any: Prescribed or Continued at Discharge Meds if any: NOT Prescribed or Continued at Discharge Cerebrovascular accident Inclusion Criteria At DC or during hospital stay patient has or had the following: CVA/TIA Diagnosis No Discharge Core Measures Meds if any: Prescribed or Continued at Discharge Meds if any: NOT Prescribed or Continued at Discharge Venous thromboembolism Inclusion Criteria VTE Diagnosis No VTE Type NONE VTE Confirmed by (Test) NONE Discharge Core Measures - Per Current guidelines, there needs to be overlap - treatment for the first 5 days of Warfarin therapy. - If discharged on Warfarin prior to 5 days of - overlap therapy, the patient will need to be - assessed for post discharge needs including - *Post discharge parental anticoagulation - *Warfarin and/or parental anticoagulation education - *Follow up date to check INR post discharge At least 5 days overlap therapy as Inpatient No Meds if any: Prescribed or Continued at Discharge Note: Overlap Therapy is Warfarin and Anticoagulant Meds if any: NOT Prescribed or Continued at Discharge
--- NOTE | 2018-05-15 11:17 | PN- Cardiology ---
Subjective Subjective: Feeling better. No chest pain. No shortness breath. No diaphoresis. He continues to have black stool. Objective Vital Signs and I&Os Vital Signs Date Time Temp Pulse Resp B/P B/P Pulse O2 O2 Flow FiO2 Mean Ox Delivery Rate 05/15 0942 98.3 56 20 142/56 05/15 0551 98.3 56 20 142/56 97 Room Air 05/14 2259 98.0 55 20 118/54 96 Room Air Intake & Output 05/15 1600 05/15 0800 05/15 0000 05/14 1600 05/14 0800 05/14 0000 Intake Total 950 2850 420 400 Output Total Balance 950 2850 420 400 Intake, Blood 350 300 Product Intake, IV 200 Intake, Oral 750 2500 120 400 Number 4 0 Bowel Movements Patient 200 lb 198 lb Weight Weight Bed scale Bed scale Measurement Method Physical Exam: Gen: NAD HEENT: normal Lungs: clear to auscultation, normal resp. effort Heart: RRR, S1, S2, no murmurs Abdomen: Soft, nontender, no masses Extremities: No clubbing, cyanosis, or edema. Neuro: Alert and oriented x 3, cranial nerves intact Current Medications: Current Medications Sig/Attila Start time Last Medication Dose Route Stop Time Status Admin Acetaminophen 650 MG Q6PRN PRN 05/13 1745 AC PO Albuterol Sulfate 2 PUF Q4-6 PRN PRN 05/13 1800 AC INH Amiodarone HCl 200 MG DAILY 05/13 1755 AC 05/15 PO 42 Aspirin 81 MG DAILY 05/14 1501 AC PO Atorvastatin Calcium 20 MG DAILY 05/14 0900 AC PO Bisacodyl 10 MG ONCE ONE 05/14 1700 DC PO 05/14 1701 Chlorhexidine 0 .STK-MED ONE 05/14 1528 DC Gluconate TOP Dextrose/Sodium 1,000 ML Q20H 05/15 0200 AC 05/15 Chloride IV 0200 Insulin Human Regular 0 Q6 05/14 0220 AC 05/15 SC 0529 Magnesium Oxide 400 MG DAILY 05/13 1759 AC 05/15 PO 941 Pantoprazole Sodium 40 MG BID 05/13 2100 AC 05/15 IV 0942 Polyethylene Glycol 0.5 GAL ONCE ONE 05/15 0500 DC 05/15 PO 05/15 0501 0524 Polyethylene Glycol 0.5 GAL ONCE ONE 05/14 1700 DC 05/14 PO 05/14 1701 1650 Results Last 48 Hrs of Labs/Mics: Laboratory Tests 05/15/18 0203: CBC w Diff NO MAN DIFF REQ, RBC 2.57 L, MCV 92.5, MCH 31.6 H, MCHC 34.2, RDW 16.1 H, MPV 9.3, Gran % 75.1, Lymphocytes % 14.7 L, Monocytes % 5.9, Eosinophils % 3.5, Basophils % 0.8, Absolute Granulocytes 4.6, Absolute Lymphocytes 0.9 L, Absolute Monocytes 0.4, Absolute Eosinophils 0.2, Absolute Basophils 0.1 05/14/18 0645: CBC w Diff NO MAN DIFF REQ, RBC 2.15 L, MCV 94.1 H, MCH 32.3 H, MCHC 34.3, RDW 15.9 H, MPV 9.8, Gran % 69.8, Lymphocytes % 18.8 L, Monocytes % 6.0, Eosinophils % 4.6, Basophils % 0.8, Absolute Granulocytes 3.4, Absolute Lymphocytes 0.9 L, Absolute Monocytes 0.3, Absolute Eosinophils 0.2, Absolute Basophils 0 05/14/18 0055: Troponin I < 0.01 05/13/18 2110: CBC w Diff NO MAN DIFF REQ, RBC 2.42 L, MCV 93.9, MCH 31.4 H, MCHC 33.5, RDW 16.0 H, MPV 10.1, Gran % 71.5, Lymphocytes % 18.0 L, Monocytes % 6.2, Eosinophils % 3.4, Basophils % 0.9, Absolute Granulocytes 4.5, Absolute Lymphocytes 1.1 L, Absolute Monocytes 0.4, Absolute Eosinophils 0.2, Absolute Basophils 0.1 05/13/18 1830: Troponin I < 0.01 05/13/18 1610: Lactic Acid 1.9 05/13/18 1235: Anion Gap 9, Estimated GFR 45 L, BUN/Creatinine Ratio 30.0 H, Glucose 135 H, Lactic Acid 2.5 H, Calcium 9.0, Total Bilirubin 0.5, AST 20, ALT 33, Alkaline Phosphatase 58, Troponin I < 0.01, Total Protein 5.6 L, Albumin 3.3 L, Globulin 2.3, Albumin/Globulin Ratio 1.4, PT 12.2, INR 1.12, APTT 25, CBC w Diff NO MAN DIFF REQ, RBC 2.64 L, MCV 94.4 H, MCH 31.4 H, MCHC 33.3, RDW 15.9 H, MPV 9.2, Gran % 78.2 H, Lymphocytes % 12.9 L, Monocytes % 4.8, Eosinophils % 3.5, Basophils % 0.6, Absolute Granulocytes 4.3, Absolute Lymphocytes 0.7 L, Absolute Monocytes 0.3, Absolute Eosinophils 0.2, Absolute Basophils 0 Assessment/Plan Assessment/Plan Assessment: 1. CAD, status post CABG 2. Permanent pacemaker 3. Atrial fibrillation 4. Acute GI bleed with melena and anemia 5. Chest discomfort with exertion, likely stable angina precipitated by anemia. Troponin negative 3 Plan: * Xarelto and aspirin on hold for GI bleed. Follow GI recommendations regarding when to restart * Continue to monitor on telemetry * Colonoscopy planned for today * Continue other cardiac medication Continue telemetry? Yes
--- NOTE | 2018-05-15 14:15 | Proc Note Colonoscopy ---
Colonoscopy Procedure Medical History: unchanged (see [facility] consult) Mental Status: alert/oriented Heart/Lung Eval Prior to Sedation: within normal limits Candidate for Sedation? Yes Date of Last Colonoscopy: No prior colonoscopy. Procedure Date: 05/15/18 Procedure Type: colonoscopy Welding Tester: Morales Stinson MD ASA Classification: III Indications: Anemia, + cologuard. Instrument (Colonoscope): single channel Meds Received: MAC Patient's Tolerance: good Complications: none Extent Reached: terminal ileum Prep: good Procedure: The risks of a colonoscopy was explained to the patient including, but not limited to, the risks of perforation, bleeding and/or a missed lesion and then written informed consent was obtained. After getting written informed consent the patient was placed in the left lateral decubitus position with pulse oximetry, cardiac monitoring, and supplemental oxygen was given. IV sedation was given until the desired effect was achieved. A rectal exam was performed which was normal. A high definition variable stiffness Olympus colonoscope was then inserted into the anus and advanced to the terminal ileum with little difficulty. Retroflexed views were obtained in both the right colon and rectum and photodocumentation was obtained. Close inspection of the colonic mucosa was performed on insertion and withdrawal of the colonoscope with a withdrawal time that was adequate in length to closely inspect all folds and rodriguez of the colon. Findings: There were several scattered diverticula appreciated in the sigmoid colon. The remainder of the visualized colonic mucosa was grossly unremarkable. There were no polyps, masses, AVMs, ulcers, or significant erythematous changes appreciated. Retroflexed views in the rectum revealed small internal hemorrhoids. Retroflexed views in the right colon did not reveal any polyps. The terminal ileum was normal in appearance. Impression: 1. Sigmoid diverticulosis. 2. Small internal hemorrhoids. 2. No active bleeding or source of anemia appreciated to the terminal ileum. Recommendations: 1. The patient will be transferred back to the medical floor and he can be advanced to a high-fiber diet as tolerated. 2. Would start oral iron supplementation. 3. There are no absolute GI contraindications to resuming anticoagulation if medically indicated. 4. Will arrange for an outpatient small bowel PillCam for further evaluation of his anemia. CC: Valeria KIRBY,Linda; Eros KIRBY,Ras
[2018-05-15 22:56] VITALS: BP 148/58
[2018-05-16 06:30] VITALS: BP 118/54
--- NOTE | 2018-05-16 07:08 | PN- Housestaff ---
Blade Weeks 05/16/18 0708: Subjective Follow-up For: GI bleed Suspected iron defiency anemia Shortness of breath Generalized weakness Complaints: no complaints Subjective: Patient seen and examined at the bedside. Slept well until 6 am, but thne unable to sleep well. Colonoscopy was unrevealing; patient to follow up with Dr. Stinson outpatient for PillCam. Otherwise denies any pain, headache, fever, chills, blurred/double vision, lightheadedness/dizziness, current chest pain at rest, palpitations, heartburn, shortness breath, cough, vomiting, abdominal pain, or urinary symptoms. Review of Systems Constitutional: Reports: see HPI. Objective Last 24 Hrs of Vital Signs/I&O Vital Signs Date Time Temp Pulse Resp B/P B/P Pulse O2 O2 Flow FiO2 Mean Ox Delivery Rate 05/16 0630 98.2 54 18 118/54 96 Room Air 05/15 2256 98.0 62 16 148/58 96 Room Air 05/15 0942 98.3 56 20 142/56 Intake & Output 05/16 1600 05/16 0800 05/16 0000 Intake Total 200 300 Output Total Balance 200 300 Intake, Oral 200 300 Patient 200 lb Weight Physical Exam General Appearance: Alert, Oriented X3, Cooperative, No Acute Distress Skin: No Rashes, No Breakdown, No Significant Lesion, bruises bilateral upper extremities Skin Temp/Moisture Exam: Warm/Dry HEENT: Atraumatic, Mucous Membr. moist/pink Cardiovascular: Regular Rate, Normal S1, Normal S2, No Murmurs, Gallops, Rubs Lungs: Clear to Auscultation, Normal Air Movement Abdomen: Soft, No Tenderness Neurological: Normal Gait, Normal Speech, Strength at 5/5 X4 Ext, Normal Tone, Sensation Intact Extremities: No Clubbing, No Cyanosis, No Edema Vascular: Normal Pulses, Pulses Symmetrical Current Medications: Current Medications Sig/Attila Start time Last Medication Dose Route Stop Time Status Admin Acetaminophen 650 MG Q6PRN PRN 05/13 1745 AC PO Albuterol Sulfate 2 PUF Q4-6 PRN PRN 05/13 1800 AC INH Amiodarone HCl 200 MG DAILY 05/13 1755 AC 05/15 PO 0942 Aspirin 81 MG DAILY 05/14 1501 AC PO Atorvastatin Calcium 20 MG DAILY 05/14 0900 AC PO Chlorhexidine 0 .STK-MED ONE 05/15 1535 DC Gluconate TOP Dextrose/Sodium 1,000 ML Q20H 05/15 0200 DC 05/15 Chloride IV 0200 Ferrous Gluconate 325 MG BID 05/15 2100 DC PO Ferrous Gluconate 324 MG BID 05/15 2100 AC 05/15 PO 2025 Insulin Aspart 0 TIDAC 05/16 0800 AC SC Insulin Human Regular 0 Q6 05/14 0220 DC 05/15 SC 0529 Magnesium Oxide 400 MG DAILY 05/13 1759 AC 05/15 PO 941 Pantoprazole Sodium 40 MG BID 05/13 2100 AC 05/15 IV 2026 Rivaroxaban 20 MG DAILY 05/16 0900 AC PO Last 24 Hrs of Lab/Alfa Results Last 24 Hrs of Labs/Mics: Laboratory Tests 05/16/18 06: Anion Gap 7, Estimated GFR 58 L, BUN/Creatinine Ratio 16.7 Assessment/Plan Assessment: 83-year-old male with extensive cardiovascular history including CAD status post CABG and atrial fibrillation on Xarelto status post permanent pacemaker presents to the emergency department with fatigue, exertional shortness of breath, chest pain, nausea in the setting of 10 days of black tarry stool. Problem list/plan: GI bleed -admit to telemetry to monitor symptomatic anemia -I's and O's per protocol, vitals q shift -Serial troponins and EKG to rule out cardiac etiology -stool was guaiac positive -transfuse 1 unite PRBC 05/14/18 -endoscopy was unrevealing; only hiatal hernia w/o Narinder erosions and erosive gastritis -start patient on consistent carbohydrate diet with high fiber -diagnostic colonoscopy performed with no obvious source of bleeding -will follow outpatient w/ Dr. Stinson for PillCam -cardiology consult w/ Dr. Cooney, primary net software architect Chronic conditions (afib, chf, cad) -patient restarted on xarelto, aspirin, and furosemide after clearance from GI DVT prophylaxis: ALPS only; patient is actively GI bleeding consistent carbohydrate with high fiber Patient is full code Problem List: 1. GI bleed 2. Atrial fibrillation 3. CAD (coronary artery disease) 4. CHF (congestive heart failure) Pain Ratin Pain Location: none Pain Goal: Remain pain free Pain Plan: none Tomorrow's Labs & Rationales: none; after checking CBC and BEP today likely will need nothing else before discharge today Discharge Plan Discharge Disposition: home Stable for Discharge? Yes Anticipated Discharge (Day): today Peggy Campbell MD 05/16/18 0950: Attending MD Review Statement Attending Statement Attending MD Statement: examined this patient, discuss w/resident/PA/TELEGRAPH MECHANIC, agreed w/resident/PA/TELEGRAPH MECHANIC, reviewed EMR data (avail), discussed with nursing, discussed with case mgmt, reviewed images Attending Assessment/Plan: Patient feels well. Endoscopy showed erosive gastritis and colonoscopy showed multiple diverticuli. Patient restart Xarelto and aspirin. We will follow-up on his hemoglobin today and if stable plan for discharge with close outpatient follow-up.
--- NOTE | 2018-05-16 08:10 | PN- Student ---
Jae Shultz 05/16/18 0801: Subjective Subjective: This is an 83-year-old male with past medical history of CAD, status post CABG, atrial fibrillation, and permanent pacemaker presented to the ED 3 days ago with melena and anemia. The patient reports doing well. He received his colonoscopy yesterday without post-op complications. He endorsed having trouble falling asleep until 6 AM this morning. His last bowel movement was "urine-like" without presence of formed stool. The patient is eager for discharge and return to work today. He denies fever, chills, headache, chest pain, abdominal pain, decreased in appetite, abnormal urinary/bowel patterns. No additional complaint today. Review of Systems Review of Systems Constitutional: Denies: no symptoms. EENTM: Denies: no symptoms. Cardiovascular: Denies: no symptoms. Respiratory: Denies: no symptoms. GI: Denies: see HPI. Genitourinary: Denies: no symptoms. Musculoskeletal: Denies: no symptoms. Skin: Denies: lesions (Bruises on bilateral arms). Neurological/Psychological: Denies: no symptoms. Hematologic/Endocrine: Denies: bruising. Objective Objective: Current Medications Sig/Attila Start time Last Medication Dose Route Stop Time Status Admin Acetaminophen 650 MG Q6PRN PRN 05/13 1745 AC PO Albuterol Sulfate 2 PUF Q4-6 PRN PRN 05/13 1800 AC INH Amiodarone HCl 200 MG DAILY 05/13 1755 AC 05/15 PO 0942 Aspirin 81 MG DAILY 05/14 1501 AC PO Atorvastatin Calcium 20 MG DAILY 05/14 0900 AC PO Chlorhexidine 0 .STK-MED ONE 05/15 1535 DC Gluconate TOP Dextrose/Sodium 1,000 ML Q20H 05/15 0200 DC 05/15 Chloride IV 0200 Ferrous Gluconate 325 MG BID 05/15 2100 DC PO Ferrous Gluconate 324 MG BID 05/15 2100 AC 05/15 PO 202 Insulin Aspart 0 TIDAC 05/16 0800 AC SC Insulin Human Regular 0 Q6 05/14 0220 DC 05/15 SC 0529 Magnesium Oxide 400 MG DAILY 05/13 1759 AC 05/15 PO 0942 Pantoprazole Sodium 40 MG BID 05/13 2100 AC 05/15 IV 202 Rivaroxaban 20 MG DAILY 05/16 0900 AC PO Results Results: Laboratory Tests 05/16/18 0608: Anion Gap 7, Estimated GFR 58 L, BUN/Creatinine Ratio 16.7 05/15/18 0203: CBC w Diff NO MAN DIFF REQ, RBC 2.57 L, MCV 92.5, MCH 31.6 H, MCHC 34.2, RDW 16.1 H, MPV 9.3, Gran % 75.1, Lymphocytes % 14.7 L, Monocytes % 5.9, Eosinophils % 3.5, Basophils % 0.8, Absolute Granulocytes 4.6, Absolute Lymphocytes 0.9 L, Absolute Monocytes 0.4, Absolute Eosinophils 0.2, Absolute Basophils 0.1 05/14/18 0645: CBC w Diff NO MAN DIFF REQ, RBC 2.15 L, MCV 94.1 H, MCH 32.3 H, MCHC 34.3, RDW 15.9 H, MPV 9.8, Gran % 69.8, Lymphocytes % 18.8 L, Monocytes % 6.0, Eosinophils % 4.6, Basophils % 0.8, Absolute Granulocytes 3.4, Absolute Lymphocytes 0.9 L, Absolute Monocytes 0.3, Absolute Eosinophils 0.2, Absolute Basophils 0 05/14/18 0055: Troponin I < 0.01 05/13/18 2110: CBC w Diff NO MAN DIFF REQ, RBC 2.42 L, MCV 93.9, MCH 31.4 H, MCHC 33.5, RDW 16.0 H, MPV 10.1, Gran % 71.5, Lymphocytes % 18.0 L, Monocytes % 6.2, Eosinophils % 3.4, Basophils % 0.9, Absolute Granulocytes 4.5, Absolute Lymphocytes 1.1 L, Absolute Monocytes 0.4, Absolute Eosinophils 0.2, Absolute Basophils 0.1 05/13/18 1830: Troponin I < 0.01 05/13/18 1610: Lactic Acid 1.9 05/13/18 1235: Anion Gap 9, Estimated GFR 45 L, BUN/Creatinine Ratio 30.0 H, Glucose 135 H, Lactic Acid 2.5 H, Calcium 9.0, Total Bilirubin 0.5, AST 20, ALT 33, Alkaline Phosphatase 58, Troponin I < 0.01, Total Protein 5.6 L, Albumin 3.3 L, Globulin 2.3, Albumin/Globulin Ratio 1.4, PT 12.2, INR 1.12, APTT 25, CBC w Diff NO MAN DIFF REQ, RBC 2.64 L, MCV 94.4 H, MCH 31.4 H, MCHC 33.3, RDW 15.9 H, MPV 9.2, Gran % 78.2 H, Lymphocytes % 12.9 L, Monocytes % 4.8, Eosinophils % 3.5, Basophils % 0.6, Absolute Granulocytes 4.3, Absolute Lymphocytes 0.7 L, Absolute Monocytes 0.3, Absolute Eosinophils 0.2, Absolute Basophils 0 PHYSICAL EXAM Last 24hrs of Vital Signs Vital Signs Date Time Temp Pulse Resp B/P B/P Pulse O2 O2 Flow FiO2 Mean Ox Delivery Rate 05/16 0630 98.2 54 18 118/54 96 Room Air 05/15 2256 98.0 62 16 148/58 96 Room Air 05/15 0942 98.3 56 20 142/56 Physical Exam General Appearance Alert, Oriented X3, Cooperative, No Acute Distress Skin No Rashes (Bruises on bilateral forearms) HEENT Atraumatic Cardiovascular Regular Rate, Normal S1, Normal S2 Lungs Clear to Auscultation, Normal Air Movement Abdomen Normal Bowel Sounds, Soft, No Tenderness, No Masses Neurological Normal Speech, Strength at 5/5 X4 Ext Extremities No Clubbing, No Cyanosis, No Edema, Normal Pulses Assessment/Plan Assessment: Mr. Garcia is an 83-year-old male with past medical history of CAD, status post CABG, atrial fibrillation, and permanent pacemaker presented to the ED 3 days ago with melena and anemia. Colonoscopy result revealed sigmoid diverticulosis with no active bleeding. Patient is afebrile with stable vitals. #Anemia/GI bleed - Colonoscopy and endoscopy are negative for active bleeding. - Plan for outpatient PillCam to rule out any obscure bleeding - Restarted patient on PO Xarelto 20 mg and PO Aspirin 81 mg - Counseled patient on high fiber diet and begin Ferrous Gluconate 325mg PO BID supplement - Plan for discharge today if CBC is unremarkable Blade Weeks 05/18/18 1130: Resident Review Statement Resident Statement: examined this patient, agree with PA student
--- NOTE | 2018-05-16 08:25 | Discharge Summary ---
Visit Information Visit Dates Admission Date: 05/13/18 Discharge Date: 05/16/18 Hospital Course Course Attending Physician: Shannan KIRBY,Peggy De Luna Primary Care Physician: Linda Shaw MD Consulting Request: 1 Consulting Specialty: Cardiology Consulting Physician: Ras cooney Reason for Consult: Symptomatic anemia/afib/chf Consulting Request: 2 Consulting Specialty: Gastroenterology Consulting Physician: Morales Stinson Reason for Consult: GI bleed Hospital Course: 83-year-old male with extensive cardiovascular history including CAD status post CABG and atrial fibrillation on Xarelto status post permanent pacemaker presents to the emergency department with fatigue, exertional shortness of breath, chest pain, nausea in the setting of 10 days of black tarry stool. Patient reports that over the past 8-9 days he has been experiencing loose black tarry stool without any obvious bright red blood. He is chronically on Xarelto and aspirin for coronary artery disease and atrial fibrillation. He has been feeling fatigued and weakness during this time and over the past several days developed exertional shortness of breath and chest pain. He saw his weigher and charger Dr. Cooney 2 days ago who instructed him to stop taking Xarelto and follow-up with gastroenterology. Patient developed nausea and was brought to the [place] ED for evaluation by ambulance. Denied any pain. Denied fever/chills/night sweats/chest pain/abdominal pain/urinary symptoms. Patient was admitted to telemetry and treated for the following concerns. GI bleed Patient was admitted to telemetry to monitor for symptomatic anemia. Serial troponins and EKG were performed to rule out cardiac etiology; all were found to be negative. Stool was positive for guaiac. On 05/14 patient was transfused 1 unit PRBC prior to GI diagnostic procedures. Upper endoscopy was unrevealing showing only hiatal hernia without Narinder erosions and erosive gastritis. Diagnostic colonoscopy was performed, which showed no source of active bleeding and showed sigmoid diverticulosis. Patient will follow outpatient with Dr. Stinson for PillCam. Atrial fibrillation Patient had Xarelto and aspirin held while in the hospital. After clearance from GI, patient had Xarelto and aspirin restarted Allergies: Coded Allergies: No Known Allergies (05/03/17) Significant Procedures: Upper GI endoscopy: Impression: 1. Mild erosive gastritis status post biopsies. 2. Small hiatal hernia without Narinder erosions. 3. No active bleeding or source of anemia appreciated to the second portion of the duodenum. Diagnostic colonoscopy: Impression: 1. Sigmoid diverticulosis. 2. No active bleeding or source of anemia appreciated to the terminal ileum. Pertinent Lab Results: HgB at 6.9; 8.1 post 1 unit PRBC transfusion Disposition Summary Disposition Principal Diagnosis: GI bleed likely diverticular in origin with erosive gastritis Acute blood loss anemia Additional Diagnosis: Afib- paced Acute blood loss anemia CHF CAD CKD Discharge Disposition: home or self care Discharge Instructions General Discharge Information Code Status: Full Code Patient's Diet: Regular as tolerated Patient's Activity: Full as tolerated Follow-Up Instructions/Appts: - Please follow up with your primary care physician within 1-2 weeks of discharge. Inform your primary care physician of this admission to [facility]. - Please follow up with your new fireworks inspector Dr. Stinson for PillCam testing as an outpatient within 1-2 weeks - Continue your current medications per discharge instructions. - Please watch for these problems: Fever, Chills, Nausea, Vomiting, Shortness of Breath, Productive Cough, Chest Pain/Discomfort, Abdominal Pain, Active Bleeding or Bloody urine/stool. Medications at Discharge Discharge Medications: Stop taking the following medications: Lisinopril (Lisinopril) 20 MG TABLET ORAL DAILY Qty = 90 Continue taking these medications: Rivaroxaban (Xarelto) 20 MG TABLET 1 Tablet ORAL DAILY Qty = 30 Instructions: with food Comments: GIVEN 05/16 @ 0 Albuterol Sulfate (Proair Hfa) 90 MCG HFA.AER.AD 2 Puff Inhale through mouth EVERY 4-6 HOURS NEEDED as needed for SOB Qty = 8 Comments: NOT GIVEN Furosemide (Furosemide) 40 MG TABLET 1 Tablet ORAL DAILY Qty = 90 Comments: NOT GIVEN Carvedilol (Carvedilol) 3.125 MG TABLET 1 Tablet ORAL TWICE DAILY Qty = 90 Comments: NOT GIVEN Amiodarone HCl (Amiodarone HCl) 200 MG TABLET 1 Tablet ORAL DAILY Qty = 90 Comments: GIVEN 05/16 @ 1029 Aspirin (Aspirin*) 81 MG TAB.CHEW 1 Tablet ORAL DAILY Comments: GIVEN 05/16 @ 0 Magnesium Oxide (Magnesium Oxide) 400 MG TABLET 1 Tablet ORAL DAILY Comments: GIVEN 05/16 Metformin HCl (Metformin HCl) 500 MG TABLET 1 Tablet ORAL TWICE DAILY Qty = 180 Comments: NOT GIVEN Lisinopril (Lisinopril) 40 MG TABLET 1 Tablet ORAL DAILY Qty = 90 Comments: NOT GIVEN Amlodipine Besylate (Amlodipine Besylate) 10 MG TABLET 1 Tablet ORAL DAILY Qty = 90 Comments: NOT GIVEN Nitroglycerin (Nitrostat) 0.4 MG TAB.SUBL 1 Tablet SUBLINGUAL As Directed as needed for chest pain Qty = 30 Instructions: 1st sign of attack; may repeat every 5 minutes until relief; if pain persists after 3 tablets in 15 minutes, prompt medical att Comments: NOT GIVEN Atorvastatin Calcium (Atorvastatin Calcium) 20 MG TABLET 1 Tablet ORAL DAILY Qty = 30 Comments: GIVEN 05/16 @ 1030 Start taking the following new medications: Ferrous Sulfate (IRON) 325 MG (65 MG IRON) TABLET 1 Tablet ORAL DAILY Qty = 30 No Refills Comments: GIVEN 05/16 @ 1030 Omeprazole (Omeprazole) 40 MG CAPSULE.DR 1 Capsule ORAL DAILY Qty = 30 No Refills Comments: GIVEN 05/16 @ 1030 Copies To: Valeria KIRBY,Linda; Milad KIRBY,Morales; Ras Cooney MD
[2018-05-16] MEDS ORDERED: IRON325 M3 PO (08:41)
[2018-05-16] MEDS ORDERED: OMEPRAZOLE40 M1 PO (09:22)
[2018-05-16 10:24] VITALS: BP 118/54
[2018-05-16 10:37] LABS: ABSOLUTE BASOPHIL COUNT 0.1 /CUMM (0.0-0.2); ABSOLUTE EOSINOPHIL COUNT 0.2 /CUMM (0.0-0.7); ABSOLUTE GRANULOCYTE CT 4.2 /CUMM (1.4-6.5); ABSOLUTE LYMPH COUNT 0.9 /CUMM (1.2-3.4); ABSOLUTE MONOCYTE COUNT 0.4 /CUMM (0.10-0.60); BASOPHIL % 0.9 % (0.0-2.0); EOSINOPHIL % 3.5 % (0-5); GRANULOCYTE % 72.8 % (42.2-75.2); HEMATOCRIT 23.7 % (42-52); MEAN CORPUSCULAR HGB 31.7 PG (27.0-31.0); MEAN CORPUSCULAR HGB CONC 34.1 G/DL (33.0-37.0); MEAN CORPUSCULAR VOLUME 92.8 FL (80.0-94.0); MEAN PLATELET VOLUME 9.5 FL (7.4-10.4); PLATELET COUNT 219 /CUMM (130-400); RED BLOOD CELL CT 2.56 /CUMM (4.70-6.10); WHITE BLOOD CELL COUNT 5.7 /CUMM (4.8-10.8)
[2018-05-16] MEDS ORDERED: LISINOPRIL40 M1 PO (11:59)
== END 2018-05-16 13:45 | DRG 378 ==
LOC: ERH 11:20 → 1NO 15:21 → ERHI 15:21 → EDBEDREQ 15:45 → ENRESERV 16:24 → ENTRNSPT 17:45 → EDTRNSPTSTS 17:47 → 1NO 17:57 → CMPTRNSPT 18:10 → 1NO 05-14 07:29 → ENPENDDIS 05-16 08:41 → ENTRNSPT 05-16 12:54 → CMPTRNSPT 05-16 13:31 → 1NO 05-16 13:45
PROVIDERS: General Practice; Internal Medicine; Internal Medicine Interventional Cardiology
PROC: 30233N1 Transfusion of Nonautologous Red Blood Cells into Peripheral Vein, Percutaneous Approach (ICD-10-PCS; principal; 2018-05-15)
PROC: 0DJD8ZZ Inspection of Lower Intestinal Tract, Via Natural or Artificial Opening Endoscopic (ICD-10-PCS; 2018-05-15)
PROC: 0DB68ZX Excision of Stomach, Via Natural or Artificial Opening Endoscopic, Diagnostic (ICD-10-PCS; 2018-05-15)
DX: K57.31 Diverticulosis of large intestine without perforation or abscess with bleeding (principal); I13.0 Hypertensive heart and chronic kidney disease with heart failure and stage 1 through stage 4 chronic kidney disease, or unspecified chronic kidney disease; D62 Acute posthemorrhagic anemia; E87.2 Acidosis; I50.9 Heart failure, unspecified; N18.3 Chronic kidney disease, stage 3 (moderate); K29.70 Gastritis, unspecified, without bleeding; E66.9 Obesity, unspecified; Z68.30 Body mass index [BMI] 30.0-30.9, adult; Z95.1 Presence of aortocoronary bypass graft; Z79.01 Long term (current) use of anticoagulants; Z79.84 Long term (current) use of oral hypoglycemic drugs; Z79.51 Long term (current) use of inhaled steroids; Z95.0 Presence of cardiac pacemaker; Z79.82 Long term (current) use of aspirin; E11.22 Type 2 diabetes mellitus with diabetic chronic kidney disease; D50.9 Iron deficiency anemia, unspecified; K44.9 Diaphragmatic hernia without obstruction or gangrene; I25.118 Atherosclerotic heart disease of native coronary artery with other forms of angina pectoris
CPT/HCPCS: 1NP; 36415; 36592; 82436; 86920; 88305; 88312; 93005; 93010; 96374; J1815; J3490; J7042; P9016